=== PATIENT | male | born 1975 | race Caucasian/White ===

== ENCOUNTER 2016-10-05 22:03 | Observation (INO) | payer MEDICAID ==
[~2016-10-05] VITALS: Ht 177.8 cm; Wt 99.8 kg
[~2016-10-05 22:03] MED LIST: AUGMENTIN 875-1 EACH PO; BACTRIM DS 8001 TA1 PO; BACTROBAN2% TP; GABAPENTIN300 M1 PO; INSULIN AS100 UNITS/ SC; JANUMET 1000 MG1 TAB PO; KEFLEX 500MG.500 MG PO; LEVAQUIN750 MG PO; LEVEMIR FLEX100 U/ML SC; LEVEMIR100 U/ML SC; LISINOPRIL2.5 M1 PO; NOVOLOG100 U/ML SC; SEPTRA DS 800 M1 TAB PO
[2016-10-05 22:06] VITALS: BP 191/120
[2016-10-05] MEDS ORDERED: AMLODIPINE BES10 MG PO (22:12)
[2016-10-05] MEDS ORDERED: LOSARTAN POTASS50 MG PO (22:12)
[2016-10-05] MEDS ORDERED: PREGABALIN 50MG50 MG PO (22:13)
[2016-10-05 22:34] LABS: ALLEN'S TEST ACCEPTABLE; ARTERIAL ABE 1.1 MMOL/L (-2.4-+2.3); ARTERIAL PO2 71.7 MMHG (80-100); ARTERIAL TCO2 27.9 MMOL/L (23-27); OXYGEN ROOM AIR
[2016-10-05 22:38] LABS: LYMPH # 0.7 K/mm3 (0.7-4.5); LYMPH % 4.7 % (10-50)
[2016-10-05 22:41] LABS: HEMOGLOBIN 14.1 g/dL (14.1-18.0)
[2016-10-05 22:42] LABS: BUN 39 mg/dL (7-18)
[2016-10-05 22:43] LABS: GFR (ESTIMATED) 75 ML/MIN (>60)
--- NOTE | 2016-10-05 23:17 | Emergency Room Report ---
History of Present Illness Time Seen by [id number] Presenting Problem in Triage Pt arrived:Wheelchair Presenting Problem:PT WITH VOMITTING AND DIARRHEA X 24 HOURS. PT HAS NOT SEEN PCP Onset of symptoms date/time:10/04/1601/13/1800 or onset unknown for: Treatment Prior to Arrival: [employer] Provided by: Sepsis Risk Assessment: Temp: 99.3 B/P: 191/120 MAP: 143 Pulse: 115 Resp: 18 Recent fever? N Clinical Suspician of Infection? N Mental Status: 1 - Regular (Normal Baseline) Sepsis Risk:Low Sepsis Risk Have you (or family members/close friends) recently traveled outside the [place]? N If Yes, where/when: Have you had exposure to infectious disease within the past month? N TB? Other? Specify: Source patient, RN notes reviewed, family, old records Exam Limitations no limitations Comment vomiting and diarrhea since this am in this iddm with no fever Cardiac Chest Pain Chest pain indicative of cardiac No Timing/Duration this evening Severity moderate ALLERGIES Coded Allergies: No Known Allergies (10/05/16) Home Medications Reported Medications Insulin Detemir (Levemir 10ML VIAL) 30 UNITS SC MORNING Insulin Aspart, Recombinant (Novolog VIAL) 30 U SC TID Amlodipine Besylate (Amlodipine Besylate) 10 MG PO DAILY #30 Losartan Potassium (Losartan 50MG) 50 MG PO DAILY #30 Pregabalin (Pregabalin 50MG Capsule) 50 MG PO BID #60 History Medical History General CAD? No Angina: No UT: No Hypertension? Yes Hyperlipidemia? No CHF? No DVT? No PE? No COPD? No Asthma? No Anemia? No GERD? No Gastric ulcers? No GI Bleed? No Hernia? No Thyroid Problems? No Hypothyroidism? No CVA? No Seizures? No Diabetes? Yes Insulin Dependent: Yes Insulin Pump: No Home FSBS? Yes Renal Insuffiency? No End Stage Renal Disease? No UTI? No Stones? No BPH? No GB Disease: No Nephritic Syndrome? No Asplenia? No Hepatitis? No Sickle Cell Disease? No Arthritis? No Migraines? No Cataracts? No Glaucoma? No MRSA? No HIV? No TB? No Anxiety? No Depression? No Cancer? No More? No Immunization Hx DT/Tetanus 1-4 Years Ago Flu Refused Pneumonia Refuses Surgical Hx Previous Surgery?Y LT GREAT TOENAIL REMOVED COLONOSCOPY W/ POLY REMOVAL Family History Family Hx Diabetes Yes CAD Yes Hypertension Yes Hyperlipidemia Yes Cancer Yes TB No Social History Smoking Hx Smoker: Never Smoker Tobacco: No Type N/A Are you/the child exposed to second-hand smoke: No Alcohol Alcohol: No Drugs none Review of Systems All Other Systems Reviewed and Negative Constitutional see HPI, denies fever, weakness Eyes denies drainage ENT denies: ear pain, epistaxis, throat pain. Respiratory denies cough, denies shortness of breath, denies wheezing Cardiovascular denies chest pain, denies palpitations, denies syncope Gastrointestinal see HPI, diarrhea, nausea, vomiting Genitourinary denies: dysuria, frequency, hesitancy, hematuria. Musculoskeletal denies back pain, denies joint pain, denies joint swelling, denies neck pain Skin denies rash Psychiatric/Neurological denies headache, denies seizure Physical Exam Vital Signs Vital Signs Date Time Temp Pulse Resp B/P Pulse O2 O2 Flow FiO2 Ox Delivery Rate 10/06 0244 112 18 165/104 95 10/06 0129 113 18 164/97 93 10/06 0027 112 18 142/87 98 10/05 2206 99.3 115 18 191/120 95 - WBC >12,000 or <4,000 or 10% bands? 2 or more SIRS Criteria Met? B/P:165/104 MAP:143 Creatinine >2.0? UA output<0.5ml/kg/hr for 2 hrs? Platelet count >100,000? Lactate >2.0mmol/1? INR >1.2 or PTT > than 60 sec? Evidence of Organ Dysfunction? Provider documented clinical suspician of infection? N Sepsis Criteria Count: 1 Sepsis Risk: Low Sepsis Risk General Appearance no apparent distress Eye Exam - bilateral eye PERRL, bilateral eye EOMI Ear, Nose, Throat pharyngeal erythema, dry mm Neck supple Respiratory Status No: respiratory distress. Lung Sounds bilateral: lungs clear. Cardiovascular regular rate/rhythm, no murmur, no rub Peripheral Pulses Pulses normal Yes Gastrointestinal soft, no organomegaly, no guarding, no rebound Back no CVA tenderness Extremities normal inspection Strength 4 Upper Ext (L), 4 Upper Ext (R), 4 Lower Ext (L), 4 Lower Ext (R) Neurologic alert, media job titles II-XII nml as tested, no motor/sensory deficits Reflexes Reflexes normal Yes Mental status normal mood/affect Skin intact Medical Decision Making LABS/Meds/Orders Pt receiving controlled substance in ED? No Results/Orders Laboratory Tests 10/05/162229: ABG pH 7.37, ABG pCO2 (Temp Corrct 46.9 H, ABG pO2 (Temp Correct 71.7 L, ABG HCO3 26.4 H, ABG Total CO2 27.9 H, ABG O2 Sat (Calculated) 94.6, ABG Base Excess 1.1, Daniel Test ACCEPTABLE 10/05/162223: Troponin I < 0.02 10/05/162223: Sodium 139, Potassium 4.6, Chloride 101, Carbon Dioxide 27, BUN 39 H, Creatinine 1.1, Estimated Creat Clear 127, Estimated GFR (MDRD) 75, Glucose 312 H, Calcium 9.1, Total Bilirubin 0.9, AST 14 L, ALT 42, Alkaline Phosphatase 92, Total Protein 8.3 H, Albumin 3.9, Globulin 4.4 H, Albumin/Globulin Ratio 0.9 L, Amylase 53, Lipase 70 L, WBC 15.5 H, RBC 4.98, Hgb 14.1, Hct 41.8 L, MCV 83.9, RDW 13.5, Plt Count 184, MPV 9.5, Gran % 92.6 H, Gran # 14.4 H, Total Counted 100, Lymphocytes % 4.7 L, Monocytes % 2.4, Eosinophils % 0.1, Basophils % 0.1, Neutrophils 97 H, Lymphocytes (Manual) 3 L, Lymphocytes # 0.7, Monocytes # 0.4, Eosinophils # 0.0, Basophils # 0.0, Platelet Estimate NORMAL, Anisocytosis 1+, PUBS MCHC 33.4, MCH 28.1, Acetone Level NONE DETECTED Current Medication Orders Sig/Zenia Start time Last Medication Dose Route Stop Time Status Admin Sodium Chloride 1,000 ML .Q1H1M 10/06 0130 DC 10/06 IV 10/06 023 0126 Sodium Chloride 10 ML PRN PRN 10/06 129 AC IV 10/07 012 Sodium Chloride 1,000 ML .STK-MED ONE 10/06 123 DC IV Sodium Chloride 1,000 ML .Q1H1M 10/06 0030 DC 10/06 IV 10/06 013 0024 Sodium Chloride 1,000 ML .STK-MED ONE 10/06 002 DC IV Metoclopramide HCl 0 .STK-MED ONE 10/05 2359 DC .ROUTE Famotidine 0 .STK-MED ONE 10/05 2358 DC IV Famotidine 20 MG ONCE ONE 10/05 2345 DC / IV 10/05 2346 0001 Metoclopramide HCl 10 MG ONCE ONE 10/05 2345 DC 10/06 IVP 10/05 2346 0001 Sodium Chloride 8 ML ONCE ONE 10/05 2345 DC 10/06 IV 10/05 2346 0001 Sodium Chloride 1,000 ML .Q1H1M 10/05 2330 DC 10/05 IV 10/06 0030 2320 Sodium Chloride 10 ML PRN PRN 10/05 2330 AC IV 10/06 2319 Sodium Chloride 1,000 ML .STK-MED ONE 10/05 2319 DC IV Ondansetron HCl 0 .STK-MED ONE 10/05 2228 DC .ROUTE Sodium Chloride 1,000 ML .STK-MED ONE 10/05 2228 DC IV Ondansetron HCl 4 MG ONCE ONE 10/05 2215 DC 10/05 IV 10/05 2216 2231 Sodium Chloride 1,000 ML .Q1H1M 10/05 2215 DC 10/05 IV 10/05 2315 2231 Sodium Chloride 10 ML PRN PRN 10/05 2215 AC IV 10/06 2215 Orders Procedure Date/time Status DIET-NOTHING BY MOUTH 10/06 B Active Decision to admit 10/[address] ABD & PELVIS W/O CONTRAST 10/[address] SCAN REQ 10/05 2318 Complete URINALYSIS/COMPLETE 10/05 2318 Active TROPONIN I 10/05 2318 Complete DIARRHEA PANEL, PCR 10/05 2318 Active DIFFERENTIAL-WBC 10/05 222 Complete ARTERIAL BLOOD GAS REQUEST 10/05 2216 Active IV SALINE LOCK 10/05 2214 Active LIPASE 10/05 2214 Complete CBC WITH AUTO DIFF 10/05 2214 Complete CHEM 12 PROFILE 10/05 2214 Complete AMYLASE 10/05 2214 Complete Acetone, Serum 10/05 2214 Complete XRAY/CT/US XRAY/CT/US CT abdomen, pelvis CT interpretation by discussed w/radiologist Time results known: 025 CT Results normal/NAD Departure Departure Time of Disposition 025 Disposition Still a Patient Clinical Impression Primary Impression: Gastroenteritis Secondary Impressions: IDDM (insulin dependent diabetes mellitus) Condition STABLE Referrals Andrew HEDRICK,Dionicio (Family) ED Critical Care Critical Care No at [phone]
[2016-10-06 00:48] LABS: NEUTROPHILS 97 % (42-76)
[2016-10-06 04:08] VITALS: BP 165/104
[2016-10-06 06:30] LABS: LYMPH # 1.1 K/mm3 (0.7-4.5); LYMPH % 8.8 % (10-50)
[2016-10-06 06:38] VITALS: BP 166/101
[2016-10-06 06:41] LABS: HEMOGLOBIN 11.1 g/dL (14.1-18.0)
--- NOTE | 2016-10-06 07:14 | Discharge Summary Standard ---
Demographics: Admit date: 10/06/16 Chief complaint: Vomiting and diarrhea PRIMARY DIAGNOSIS: GASTROENTERITIS Allergies: Coded Allergies: No Known Allergies (10/05/16) History of present illness: History of present illness: 41-year-old male with diabetes presented to the emergency department after 24 hours of continuous vomiting and diarrhea. Workup in the emergency department revealed a slightly elevated white blood cell count. Imaging tests were unremarkable. The patient did not have any abdominal tenderness. Because of persistent symptoms and lightheadedness upon standing the patient was admitted for observation and IV fluids. Patient last vomited approximately 6-7 hours ago. Last diarrheal bowel movement was yesterday afternoon. Past medical history: Family HX Family Hx Insignificant No Diabetes Yes CAD Yes Hypertension Yes Hyperlipidemia Yes Cancer Yes TB No Immunization HX DT/Tetanus 1-4 Years Ago Flu Refused Pneumonia Refuses TB Test in last year No General CAD? No Angina: No OR: No Hypertension? Yes Hyperlipidemia? No CHF? No DVT? No PE? No COPD? No Asthma? No Anemia? No GERD? No Gastric ulcers? No GI Bleed? No Hernia? No Thyroid Problems? No Hypothyroidism? No CVA? No Seizures? No Diabetes? Yes Insulin Dependent: Yes Insulin Pump: No Home FSBS? Yes Renal Insuffiency? No UTI? No Stones? No BPH? No GB Disease: No Nephritic Syndrome? No Asplenia? No Hepatitis? No Sickle Cell Disease? No Arthritis? No Migraines? No Cataracts? No Glaucoma? No MRSA? No HIV? No TB? No Anxiety? No Depression? No Cancer? No More? No Past Surgical HX Previous Surgery?Y LT GREAT TOENAIL REMOVED COLONOSCOPY W/ POLY REMOVAL Current home meds: Reported Medications Insulin Detemir (Levemir 10ML VIAL) 30 UNITS SC MORNING Insulin Aspart, Recombinant (Novolog VIAL) 30 U SC TID Amlodipine Besylate (Amlodipine Besylate) 10 MG PO DAILY #30 Losartan Potassium (Losartan 50MG) 50 MG PO DAILY #30 Pregabalin (Pregabalin 50MG Capsule) 50 MG PO BID #60 Social Hx: Smoking HX Tobacco No Type N/A Are you/the child exposed to second-hand smoke: No Alcohol Alcohol: No Hx of Drug Use Drug Use? No Review of systems: Constitutional No: chills, fever. Respiratory no symptoms reported. Cardiovascular no symptoms reported Gastrointestinal/Abdominal see HPI Genitourinary no symptoms reported. Musculoskeletal no symptoms reported. Neurological Yes: no symptoms reported. Exam: Lab data for last 24 hours: Laboratory Tests 10/06/16 06: POC Glucose 227 H 10/06/16 0620: Sodium 143, Potassium 4.6, Chloride 109 H, Carbon Dioxide 29, BUN 31 H, Creatinine 0.9, Estimated Creat Clear 156, Estimated GFR (MDRD) 94, Glucose 237 H, Calcium 7.7 L, Total Bilirubin 0.5, AST 10 L, ALT 30, Alkaline Phosphatase 66, Total Protein 6.3 L, Albumin 2.9 L, Globulin 3.4 H, Albumin/Globulin Ratio 0.9 L, WBC 11.9 H, RBC 3.93 L, Hgb 11.1 L, Hct 33.3 L, MCV 84.8, RDW 13.5, Plt Count 139 L, MPV 9.2, Gran % 87.1 H, Gran # 10.4 H, Lymphocytes % 8.8 L, Monocytes % 3.9, Eosinophils % 0.1, Basophils % 0.1, Lymphocytes # 1.1, Monocytes # 0.5, Eosinophils # 0.0, Basophils # 0.0, PUBS MCHC 33.7, MCH 28.6 10/05/162229: ABG pH 7.37, ABG pCO2 (Temp Corrct 46.9 H, ABG pO2 (Temp Correct 71.7 L, ABG HCO3 26.4 H, ABG Total CO2 27.9 H, ABG O2 Sat (Calculated) 94.6, ABG Base Excess 1.1, Daniel Test ACCEPTABLE 10/05/162223: Troponin I < 0.02 10/05/162223: Sodium 139, Potassium 4.6, Chloride 101, Carbon Dioxide 27, BUN 39 H, Creatinine 1.1, Estimated Creat Clear 127, Estimated GFR (MDRD) 75, Glucose 312 H, Calcium 9.1, Total Bilirubin 0.9, AST 14 L, ALT 42, Alkaline Phosphatase 92, Total Protein 8.3 H, Albumin 3.9, Globulin 4.4 H, Albumin/Globulin Ratio 0.9 L, Amylase 53, Lipase 70 L, WBC 15.5 H, RBC 4.98, Hgb 14.1, Hct 41.8 L, MCV 83.9, RDW 13.5, Plt Count 184, MPV 9.5, Gran % 92.6 H, Gran # 14.4 H, Total Counted 100, Lymphocytes % 4.7 L, Monocytes % 2.4, Eosinophils % 0.1, Basophils % 0.1, Neutrophils 97 H, Lymphocytes (Manual) 3 L, Lymphocytes # 0.7, Monocytes # 0.4, Eosinophils # 0.0, Basophils # 0.0, Platelet Estimate NORMAL, Anisocytosis 1+, PUBS MCHC 33.4, MCH 28.1, Acetone Level NONE DETECTED Admission vital signs: 1ST Vital Signs Result Date Time Pulse Ox 95 10/05 2205 B/P 191/120 10/05 2205 Temp 99.3 10/05 2205 Pulse 115 10/05 2205 Resp 18 10/05 2205 O2 Delivery ROOM AIR 10/06 0407 Additional information: Patient is resting comfortably in bed. Oropharynx is moist without any posterior oropharyngeal erythema. Neck has no lymphadenopathy. Lungs are clear to auscultation. Heart has regular rate and rhythm. Abdomen is soft, nontender and nondistended with normal bowel sounds. Patient can move all his extremities. Neurologically he has diminished sensation in the feet from his diabetic neuropathy otherwise normal neurologic exam. Hospital Course Hospital Course: Patient was admitted and placed on IV fluids. Diet was started on the morning of the . Medications Medications: Discharge meds are as noted. Follow up Follow up in office in: as scheduled with: Andrew HEDRICK,Dionicio
[2016-10-06 07:31] VITALS: BP 165/103
--- NOTE | 2016-10-06 07:39 | PHARMACY CLINIC NOTE ---
Patient Demographics Patient Demographics Admission date: 10/06/16 Date: 10/06/16 Time: 07 Allergies Coded Allergies: No Known Allergies (10/05/16) HEIGHT- FT: 5 IN: 10.00 K.792 VTE General Information Labs: Laboratory Tests 10/0620 2224 Hematology Hgb (14.1 - 18.0 g/dL) 11.1 L 14.1 Hct (42.0 - 52.0 %) 33.3 L 41.8 L Plt Count (142 - 424 K/mm3) 139 L 184 Disclaimer The following section includes nursing documentation that has been pulled in for pharmacy review. Patient's VTE score: 1 Patient's VTE Risk: VERY LOW RISK Clinical trial participant? No VTE prophylaxis [id number] VTE prophylaxis ordered? Yes Type of prophylaxis/treatment: SABINE at 0739
--- NOTE | 2016-10-06 08:26 | RADIOLOGY REPORT PS360 ---
CT ABD PELVIS W/O CONTRAST CLINICAL INDICATION: Abdominal pain with nausea vomiting and diarrhea ABD PAIN ORDERING PHYSICIAN: Dionicio Morales MD PATIENT AGE: 41 years COMPARISON: None TECHNIQUE: Axial images obtained with sagittal and coronal reformats. PROCEDURE: Oral Contrast: None IV Contrast: None . FINDINGS: Lower thorax: No acute finding. Noncalcified 4 mm nodule left lower lobe nonspecific ABDOMEN: Liver: No masses or biliary dilatation. Gallbladder: Nondistended. No radio opaque stones. Pancreas: No masses or peripancreatic fluid collections. Spleen: Unremarkable. Adrenals: Unremarkable Kidneys/ureters: No masses. No renal calculi. No hydronephrosis. No perinephric fluid collections. No ureteral dilatation or obvious ureteral calculi. Stomach bowel: Colonic diverticulosis. No evidence of diverticulitis. Thickening versus nondistention of the descending and sigmoid colon Appendix: No evidence of appendicitis. PELVIS: Reproductive: Unremarkable Bladder: Nondistended. No obvious stones or masses. ABDOMEN & PELVIS: Peritoneum: No abnormal fluid collections. No obvious inflammatory changes. No free air. Lymph nodes: No enlarged lymph nodes apparent. Vasculature: No evidence of abdominal aortic aneurysm. No retroperitoneal hemorrhage evident. Bones: No acute fracture IMPRESSION: 1. No acute intra-abdominal or pelvic pathology. 2. Colonic diverticulosis. No evidence of diverticulitis. There is mild thickening of the descending and sigmoid colon which may be due to nondistention. Colitis would be included in the differential diagnosis
[2016-10-06 08:49] VITALS: BP 165/103
[2016-10-06 13:24] LABS: URINE BILIRUBIN - DIPSTICK NEGATIVE (NEG); URINE BLOOD 2+ (NEG)
[2016-10-06 15:43] VITALS: BP 158/88
[2016-12-15] MEDS ORDERED: SEPTRA DS 800 M1 TAB PO (22:42)
[2016-12-15] MEDS ORDERED: KEFLEX 500MG.500 MG PO (22:42)
== END 2016-10-06 15:50 | disposition home or self-care (01) ==
LOC: ER 22:03 → 2ND 10-06 02:54
PROVIDERS: Emergency Medicine
DX: K52.9 Noninfective gastroenteritis and colitis, unspecified (principal); E11.9 Type 2 diabetes mellitus without complications; Z79.4 Long term (current) use of insulin; I10 Essential (primary) hypertension
CPT/HCPCS: G0378; J2405

== ENCOUNTER 2017-05-01 09:33 | Inpatient (IN) | payer MEDICAID ==
[~2017-05-01] VITALS: Ht 177.8 cm; Wt 103.6 kg
[~2017-05-01 09:33] MED LIST changes: +AMLODIPINE BES10 MG PO; +LOSARTAN POTASS50 MG PO; +PREGABALIN 50MG50 MG PO
--- NOTE | 2017-05-01 10:09 | Urgent Treatment Center Report ---
History of Present Issue Visit Reason Pt arrived:Walked Presenting Problem:PT STATES FEVER, N/V, DIZZINESS, ROARING IN EARS. STATES RECENT HOSPITALIZATION WHICH HE WAS RELEASED FROM WEDNESDAY AND HAS NOT FELT BETTER SINCE Location if Accident: Onset of symptoms date/time:/ or onset unknown for:MEDICAL HX UNKNOWN Have you (or family members/close friends) recently traveled outside the [place]? N If Yes, where/when: Have you had exposure to infectious disease within the past month? TB? Other? Specify: Source patient Exam Limitations no limitations Comment 41-year-old male presents for vomiting, dizziness, roaring in the ears, edema, low-grade fever, unable to keep liquids or food down. Patient was an inpatient just released for gastritis. ALLERGIES Coded Allergies: ondansetron (05/01/17) promethazine (From PHENERGAN) (05/01/17) Home Medications Reported Medications Insulin Detemir (Levemir 10ML VIAL) 36 UNITS SC MORNING Insulin Aspart, Recombinant (Novolog VIAL) 12 UNITS SC TID Amlodipine Besylate (Amlodipine Besylate) 10 MG PO DAILY #30 Losartan Potassium (Losartan 50MG) 50 MG PO DAILY #30 Pregabalin (Pregabalin 50MG Capsule) 50 MG PO BID #60 (Lucretia Smith) Date/Time Seen by Provider 05/01/17 1034 Comment pT transferred from the [facility] to the ED after CXR read as Pulmonary Edema by Dr. Toussaint. His BNP is only 116 and his O2 Sat on Room air is around 81%. He does have 1+ pretibial edema, his neck veins are not distended and I do not hear crackles in the bases. He denies any chest pain but says even when he was in the hospital last week, his O2 Sats were low. He also reports he normally has some pedal and pretibial edema and normally wears SABINE hose but not today He has been a Type 1 DM pt for over 20 years and has had some episodes of DKA in the past but does not appear to be in DKA today (Holly HEDRICK,Elizabet) History Medical History General CAD? No Angina: No CT: No Hypertension? Yes Hyperlipidemia? No CHF? No DVT? No PE? No COPD? No Asthma? No Anemia? No GERD? No Gastric ulcers? No GI Bleed? No Hernia? No Thyroid Problems? No Hypothyroidism? No CVA? No Seizures? No Diabetes? Yes Insulin Dependent: Yes Insulin Pump: No Home FSBS? Yes Renal Insuffiency? No UTI? No Stones? No BPH? No GB Disease: No Nephritic Syndrome? No Asplenia? No Hepatitis? No Sickle Cell Disease? No Arthritis? No Migraines? No Cataracts? No Glaucoma? No MRSA? No HIV? No TB? No Anxiety? No Depression? No Cancer? No More? Yes Additional hx: DIABETIC ISSUE WITH EYE (GETS SHOTS) Immunization HX DT/Tetanus 1-4 Years Ago Flu Refused Pneumonia Refuses Surgical Hx Previous Surgery?Y LT GREAT TOENAIL REMOVED COLONOSCOPY W/ POLY REMOVAL Family History Family HX Diabetes Yes CAD Yes Hypertension Yes Hyperlipidemia Yes Cancer Yes TB No Social History Smoking Hx Smoker: Never Smoker Tobacco: No Alcohol Alcohol: No (Lucretia Smith) Medical History Surgical Hx Previous Surgery?Y LT GREAT TOENAIL REMOVED COLONOSCOPY W/ POLY REMOVAL (Holly HEDRICK,Elizabet) Review of Systems All Other Systems Reviewed and Negative Gastrointestinal see HPI, nausea, vomiting (Lucretia Smith) All Other Systems Reviewed and Negative Constitutional see HPI Respiratory see HPI Cardiovascular see HPI Musculoskeletal see HPI (edema both legs) (Holly HEDRICK,Elizabet) Physical Exam Vital Signs Vital Signs Date Time Temp Pulse Resp B/P Pulse O2 O2 Flow FiO2 Ox Delivery Rate 05/01 1344 98.7 86 18 170/104 98 / 1304 94 16 181/106 95 05/01 1225 96 14 189/109 95 05/01 1124 98.5 110 18 177/106 90 / 0946 98.7 89 18 187/110 96 - WBC >12,000 or <4,000 or 10% bands? 2 or more SIRS Criteria Met? B/P:187/110 MAP:135 Creatinine >2.0? UA output<0.5ml/kg/hr for 2 hrs? Platelet count >100,000? Lactate >2.0mmol/1? INR >1.2 or PTT > than 60 sec? Evidence of Organ Dysfunction? Provider documented clinical suspician of infection? Sepsis Criteria Count: 0 Sepsis Risk: General Appearance normal appearance, mild distress Respiratory Status Yes: trachea midline, chest symmetrical. No: respiratory distress. Lung Sounds bilateral: decreased breath sounds. Cardiovascular normal exam, normal peripheral pulses, edema to lower ext and abd Gastrointestinal normal bowel sounds, soft, no guarding, no rebound Extremities pedal edema, 2+ pitting edema to the lower extremities Neurologic alert, dress cutter II-XII nml as tested, normal exam, oriented x 3 (Lucretia Smith) General Appearance mild distress Respiratory Status No: respiratory distress. (Holly HEDRICK,Elizabet) Medical Decision Making LABS/Meds/Orders Pt receiving controlled substance in ED? No Results/Orders Laboratory Tests 05/01/17 1202: ABG pH Pending, ABG pCO2 (Temp Corrct Pending, ABG pO2 (Temp Correct Pending, ABG HCO3 Pending, ABG O2 Sat (Calculated) Pending, ABG Base Excess Pending 05/01/17 1155: ABG pH 7.36, ABG pCO2 (Temp Corrct 51.6 H, ABG pO2 (Temp Correct 48.3 *L, ABG HCO3 28.2 H, ABG Total CO2 29.8 H, ABG O2 Sat (Calculated) 83.1 *L, ABG Base Excess 2.7 H, Daniel Test ACCEPTABLE, Blood Gas Comments RIGHT RADIAL 05/01/17 1015: Lactic Acid 0.8 05/01/17 1015: Creatine Kinase 261, CK-MB (CK-2) Rel Index 1.1, CK and CKMB Interp 3.0, Troponin I < 0.02 05/01/17 1015: Sodium 137, Potassium 4.9, Chloride 101, Carbon Dioxide 28, BUN 34 H, Creatinine 1.5 H, Estimated Creat Clear 98, Estimated GFR (MDRD) 52, Glucose 387 H, Calcium 8.1 L, Total Bilirubin 0.5, AST 17, ALT 87 H, Alkaline Phosphatase 82, B-Natriuretic Peptide 116 H, Total Protein 7.1, Albumin 3.6, Globulin 3.5 H, Albumin/Globulin Ratio 1.0 L, Amylase 24 L, Lipase 123, WBC 7.1, RBC 3.85 L, Hgb 11.2 L, Hct 35.2 L, MCV 91.3, RDW 14.4, Plt Count 205, MPV 9.0, Gran % 82.2 H, Gran # 5.8, Lymphocytes % 11.6, Monocytes % 4.0, Eosinophils % 1.8, Basophils % 0.4, Lymphocytes # 0.8, Monocytes # 0.3, Eosinophils # 0.1, Basophils # 0.0, PUBS MCHC 31.9, MCH 29.2, Acetone Level NONE DETECTED Current Medication Orders Sig/Zenia Start time Last Medication Dose Route Stop Time Status Admin Furosemide 0 .STK-MED ONE 05/01 1213 DC .ROUTE Nitroglycerin 0 .STK-MED ONE 05/01 1212 DC .ROUTE Furosemide 40 MG ONCE ONE 05/01 1200 DC 05/01 IV 05/01 1201 1212 Nitroglycerin 0.5 IN ONCE ONE 05/01 1200 DC 05/01 TP 05/01 1201 1212 Orders Procedure Date/time Status ARTERIAL BLOOD GAS REQUEST 05/01 1128 Active CULTURE, BLOOD 05/01 1125 Active CULTURE, BLOOD 05/01 1123 Active Acetone, Serum 05/01 1054 Complete LACTIC ACID 05/01 1009 Complete 12 LEAD EKG-BESSON (INITIAL) 05/01 0955 Active ELECTROCARDIOGRAM REQUEST 05/01 0954 Active CARDIAC ENZYMES 05/01 0954 Complete LIPASE 05/01 0948 Complete CBC WITH AUTO DIFF 05/01 0948 Complete CHEM 12 PROFILE 05/01 0948 Complete BRAIN NATRIURETIC PEPTIDE 05/01 0948 Complete AMYLASE 05/01 0948 Complete Departure Departure Referrals Dionicio Morales MD (Family) (Lucretia Smith) Departure Time of Disposition 1453 Disposition Still a Patient Clinical Impression Primary Impression: Congestive heart failure Qualifiers: Congestive heart failure type: diastolic Congestive heart failure chronicity: acute Qualified Code: I50.31 - Acute diastolic (congestive) heart failure Secondary Impressions: Diabetes mellitus type 1, controlled, insulin dependent Condition STABLE Additional Instructions Dr Morales admitting to OBS to Dr. Morales Discharge Counseling Counseled pt/family regarding diagnosis, test results, follow up needs (Elizabet Barrera MD) at 1456
[2017-05-01 10:29] LABS: HEMOGLOBIN 11.2 g/dL (14.1-18.0); LYMPH # 0.8 K/mm3 (0.7-4.5); LYMPH % 11.6 % (10-50)
[2017-05-01 11:24] VITALS: BP 177/106
--- NOTE | 2017-05-01 11:46 | RADIOLOGY REPORT PS360 ---
CHEST(2 VIEWS-NOT PORTABLE) HISTORY: effusion hx short of breath. Malaise. Recent discharge. Dizzy. Chest pain. Cough. Patient Age: 41 years: Male Ordering Physician: Lucretia Smith TECHNIQUE: PA and lateral chest COMPARISON :PA and lateral chest 11/19/2016 as well as recent CT abdomen which included the lung bases from 04/22/2017. FINDINGS Significant change in appearance the chest since prior chest film 11/19/2016. There is interstitial coarsening and edema most evident at the right lung. With this there are septal lines, curly B lines seen at the periphery of the right lung particularly right upper lung.. Also blunting of the posterior sulcus reflecting bilateral pleural effusions. Question additional more focal infiltrate at the right infrahilar region towards right lower lobe. The heart is normal in size. A slight hazy appearance of the perihilar region right greater than left likely reflecting the mild pulmonary edema. Recent CT chest 04/22/2017 also reflected interstitial edema with bilateral pleural effusions. These pleural effusions have not progressed in the interstitial edema appears comparable to what was seen at the partially imaged lungs on that study. Interstitial infiltrate and findings were most evident at the right infrahilar region. Question some fullness at the right nevaeh on that exam. I would recommend a follow-up CT chest and abdomen with contrast, when feasible in follow-up to evaluate this question a generous right nevaeh on the recent CT abdomen.-Which May merely be partially imaged generous right pulmonary artery IMPRESSION Diffuse Interstitial infiltrate/, & mild pulmonary edema pattern most evident right lung, with tricia B lines most evident on right... The heart is not enlarged. ( Is patient anemic/hypoproteinemic/or edematous state otherwise?) Suggestion additional infiltrate towards RLL, most evident on lateral view. Small Bilateral pleural effusions persist, seen at posterior sulcus as seen on 04/22/2017 CT Similar interstitial edema pattern was noted on recent CT abdomen, 04/22/2017which included lung bases . Note: On again review of recent CT abdomen there seems to be some fullness of the hilar regions, right more so than left. Would encourage a follow-up CT chest & abdomen with contrast when feasible.. Possible CTA chest if this is a concern
[2017-05-01 14:05] LABS: ALLEN'S TEST ACCEPTABLE; ARTERIAL ABE 2.7 MMOL/L (-2.4-+2.3); ARTERIAL PO2 48.3 MMHG (80-100); ARTERIAL TCO2 29.8 MMOL/L (23-27); OXYGEN ROOM AIR
[2017-05-01 15:08] VITALS: BP 150/94
[2017-05-01 15:52] VITALS: BP 150/94
[2017-05-01 19:56] VITALS: BP 139/72
[2017-05-02] VITALS (7 sets, daily range): BP systolic 127–185; BP diastolic 56–97
--- NOTE | 2017-05-02 06:43 | HISTORY AND PHYSICAL REPORT ---
Demographics: Admit date: 05/01/17 Chief complaint: Shortness of breath PRIMARY DIAGNOSIS: HEART FAILURE Allergies: Coded Allergies: promethazine (From PHENERGAN) (05/01/17) History of present illness: History of present illness: 41-year-old male with long history of uncontrolled diabetes with neuropathy and hypertension presented to the emergency department after awakening on the morning of May 01 with shortness of breath. Dyspnea was so severe he returned to the emergency department where his O2 sats were in the high 70s. Patient had signs and symptoms consistent with acute congestive heart failure and his chest x-ray showed pulmonary edema. Patient had been hospitalized approximately 10 days prior and during that hospitalization had had an echocardiogram which showed a hyperdynamic ventricle with normal ejection fraction and no signs of diastolic dysfunction. Patient was given Lasix in the emergency department and had 2 L of urine output which helped relieve dyspnea. Patient was admitted for further monitoring, IV Lasix, serial enzymes. Overnight the patient developed acute onset of a migraine headache with a stabbing pain in the christian, nausea, vomiting and phonophobia. Patient denies having any chest pain. He has noted that his legs and been more swollen recently than baseline. Patient also admits he felt like his abdomen has been swollen Past medical history: Family HX Family Hx Insignificant No Diabetes Yes CAD Yes Hypertension Yes Hyperlipidemia Yes Cancer Yes TB No Immunization HX DT/Tetanus 1-4 Years Ago Flu Refused Pneumonia Refuses TB Test in last year No General CAD? No Angina: No PR: No Hypertension? Yes Hyperlipidemia? No CHF? No DVT? No PE? No COPD? No Asthma? No Anemia? No GERD? No Gastric ulcers? No GI Bleed? No Hernia? No Thyroid Problems? No Hypothyroidism? No CVA? No Seizures? No Diabetes? Yes Insulin Dependent: Yes Insulin Pump: No Home FSBS? Yes Renal Insuffiency? Yes UTI? No Stones? No BPH? No GB Disease: No Nephritic Syndrome? No Asplenia? No Hepatitis? No Sickle Cell Disease? No Arthritis? No Migraines? No Cataracts? No Glaucoma? No MRSA? No HIV? No TB? No Anxiety? No Depression? No Cancer? No More? Yes Additional hx: DIABETIC ISSUE WITH EYE (GETS SHOTS) Past Surgical HX Previous Surgery?Y LT GREAT TOENAIL REMOVED COLONOSCOPY W/ POLY REMOVAL Current home meds: Reported Medications Insulin Detemir (Levemir 10ML VIAL) 36 UNITS SC MORNING Insulin Aspart, Recombinant (Novolog VIAL) 12 UNITS SC TID Amlodipine Besylate (Amlodipine Besylate) 10 MG PO DAILY #30 Losartan Potassium (Losartan 50MG) 50 MG PO DAILY #30 Pregabalin (Pregabalin 50MG Capsule) 50 MG PO BID #60 Social Hx: Smoking HX Tobacco No Alcohol Alcohol: No Hx of Drug Use Drug Use? No Patien't marital status is Patient's support system is good Review of systems: Constitutional No: chills, diaphoresis, fever, malaise. Respiratory see HPI, orthopnea, SOB with excertion. Cardiovascular No chest pain, edema, No palpitations Gastrointestinal/Abdominal abdomen distended Genitourinary no symptoms reported. Musculoskeletal no symptoms reported. Neurological Yes: no symptoms reported. Exam: Lab data for last 24 hours: Laboratory Tests 05/02/17 0617: POC Glucose 199 H 05/01/17 2041: POC Glucose 123 H 05/01/17 1700: POC Glucose 205 H 05/01/17 1505: Creatine Kinase 273, CK-MB (CK-2) Rel Index 1.0, CK and CKMB Interp 2.8, Troponin I < 0.02 05/01/17 1155: ABG pH 7.36, ABG pCO2 (Temp Corrct 51.6 H, ABG pO2 (Temp Correct 48.3 *L, ABG HCO3 28.2 H, ABG Total CO2 29.8 H, ABG O2 Sat (Calculated) 83.1 *L, ABG Base Excess 2.7 H, Daniel Test ACCEPTABLE, Blood Gas Comments RIGHT RADIAL 05/01/17 1015: Lactic Acid 0.8 05/01/17 1015: Creatine Kinase 261, CK-MB (CK-2) Rel Index 1.1, CK and CKMB Interp 3.0, Troponin I < 0.02 05/01/17 1015: Sodium 137, Potassium 4.9, Chloride 101, Carbon Dioxide 28, BUN 34 H, Creatinine 1.5 H, Estimated Creat Clear 98, Estimated GFR (MDRD) 52, Glucose 387 H, Calcium 8.1 L, Total Bilirubin 0.5, AST 17, ALT 87 H, Alkaline Phosphatase 82, B-Natriuretic Peptide 116 H, Total Protein 7.1, Albumin 3.6, Globulin 3.5 H, Albumin/Globulin Ratio 1.0 L, Amylase 24 L, Lipase 123, WBC 7.1, RBC 3.85 L, Hgb 11.2 L, Hct 35.2 L, MCV 91.3, RDW 14.4, Plt Count 205, MPV 9.0, Gran % 82.2 H, Gran # 5.8, Lymphocytes % 11.6, Monocytes % 4.0, Eosinophils % 1.8, Basophils % 0.4, Lymphocytes # 0.8, Monocytes # 0.3, Eosinophils # 0.1, Basophils # 0.0, PUBS MCHC 31.9, MCH 29.2, Acetone Level NONE DETECTED Microbiology 05/01 150 BLOOD: Anaerobic Blood Culture - RECD 05/01 150 BLOOD: Aerobic Blood Culture - RECD 05/01 150 BLOOD: Anaerobic Blood Culture - RECD 05/01 150 BLOOD: Aerobic Blood Culture - RECD Admission vital signs: 1ST Vital Signs Result Date Time Pulse Ox 96 05/01 0946 B/P 187/110 05/01 0946 Temp 98.7 05/01 0946 Pulse 89 05/01 0946 Resp 18 05/01 0946 O2 Flow Rate 2 05/01 1445 O2 Delivery OXYGEN 05/01 1508 Vital Signs Date Time Temp Pulse Resp B/P Pulse O2 O2 Flow FiO2 Ox Delivery Rate 05/02 0430 2 05/02 0430 98.6 94 20 169/93 96 OXYGEN 2 05/02 0255 2 05/02 0200 2 05/02 0103 2 05/02 0049 96 OXYGEN 2 05/02 0000 99.0 97 20 127/56 Exam General appearance: normal appearance, alert, awake Eyes: normal exam, anicteric ENT: normal exam, mucous membranes moist Neck: normal inspection, non-tender, no carotid bruit, no JVD Cardiovascular: normal exam Respiratory: normal exam, clear to auscultation ABD: normal exam, non-distended, normal bowel sounds Extremities: edema (2+) Additional information: Electrocardiogram shows a sinus rhythm without ischemic changes Plan: Problem List 1. Congestive heart failure 2. Elevated liver function tests 3. Hypertension 4. IDDM (insulin dependent diabetes mellitus) 5. Diabetic neuropathy Plan: Etiology of patient's congestive heart failure is somewhat unclear. Due to the long-standing nature of his uncontrolled diabetes there is a high percentage the patient does have significant coronary artery disease. Patient will be given additional Lasix today with close monitoring of I's and O's. Plan for cardiac stress testing on May 04
[2017-05-02 07:04] LABS: HEMOGLOBIN 10.6 g/dL (14.1-18.0); LYMPH # 1.2 K/mm3 (0.7-4.5); LYMPH % 16.2 % (10-50)
[2017-05-02 07:30] LABS: BILIRUBIN, INDIRECT 0.38 mg/dL (0-0.9)
--- NOTE | 2017-05-02 09:33 | PHARMACY CLINIC NOTE ---
Patient Demographics Patient Demographics Admission date: 05/01/17 Date: 05/02/17 Time: 09 Allergies Coded Allergies: promethazine (From PHENERGAN) (05/01/17) HEIGHT- FT: 5 IN: 10.00 K.375 VTE General Information Labs: Laboratory Tests 05/02 05/01 0602 1015 Hematology Hgb (14.1 - 18.0 g/dL) 10.6 L 11.2 L Hct (42.0 - 52.0 %) 33.1 L 35.2 L Plt Count (142 - 424 K/mm3) 207 205 Disclaimer The following section includes nursing documentation that has been pulled in for pharmacy review. Patient's VTE score: 1 Patient's VTE Risk: VERY LOW RISK Clinical trial participant? No VTE prophylaxis NQF [id number] VTE prophylaxis ordered? Yes Type of prophylaxis/treatment: SABINE at 0933
--- NOTE | 2017-05-02 15:02 | CONSULT NOTE ---
Pharmacokinetic Consult Date of consult: 05/02/17 Time of consult: 1500 Referring provider: DR. DANIEL Reason for consult: VANCOMYCIN DOSING Allergies: Coded Allergies: promethazine (From PHENERGAN) (05/01/17) Home Medications: Reported Medications Insulin Detemir (Levemir 10ML VIAL) 36 UNITS SC MORNING Insulin Aspart, Recombinant (Novolog VIAL) 12 UNITS SC TID Amlodipine Besylate (Amlodipine Besylate) 10 MG PO DAILY #30 Losartan Potassium (Losartan 50MG) 50 MG PO DAILY #30 Pregabalin (Pregabalin 50MG Capsule) 50 MG PO BID #60 Height (feet): 5 Height (inches): 10.00 Medical History: CAD? No Angina: No [place]: No Hypertension? Yes Hyperlipidemia? No CHF? No DVT? No PE? No COPD? No Asthma? No Anemia? No GERD? No Gastric ulcers? No GI Bleed? No Hernia? No Thyroid Problems? No Hypothyroidism? No CVA? No Seizures? No Diabetes? Yes Insulin Dependent: Yes Insulin Pump: No Home FSBS? Yes Renal Insuffiency? Yes UTI? No Stones? No BPH? No GB Disease: No Nephritic Syndrome? No Asplenia? No Hepatitis? No Sickle Cell Disease? No Arthritis? No Migraines? No Cataracts? No Glaucoma? No MRSA? No HIV? No TB? No Anxiety? No Depression? No Cancer? No More? Yes Additional hx: DIABETIC ISSUE WITH EYE (GETS SHOTS) Labs: Laboratory Tests 05/02/17 0617: POC Glucose 199 H 05/02/17 0602: Sodium 142, Potassium 4.3, Chloride 104, Carbon Dioxide 30, BUN 28 H, Creatinine 1.2, Estimated Creat Clear 123, Estimated GFR (MDRD) 67, Glucose 185 H, Calcium 8.2 L 05/02/17 0602: Total Bilirubin 0.5, Direct Bilirubin 0.12, Indirect Bilirubin 0.38, AST 17, ALT 72, Alkaline Phosphatase 73, Total Protein 6.0 L, Albumin 3.2 L, WBC 7.2, RBC 3.70 L, Hgb 10.6 L, Hct 33.1 L, MCV 89.4, RDW 14.4, Plt Count 207, MPV 8.0, Gran % 78.5, Gran # 5.7, Lymphocytes % 16.2, Monocytes % 3.1, Eosinophils % 2.0, Basophils % 0.2, Lymphocytes # 1.2, Monocytes # 0.2, Eosinophils # 0.1, Basophils # 0.0, PUBS MCHC 32.1, MCH 28.7 05/01/17 2041: POC Glucose 123 H 05/01/17 1700: POC Glucose 205 H 05/01/17 1505: Creatine Kinase 273, CK-MB (CK-2) Rel Index 1.0, CK and CKMB Interp 2.8, Troponin I < 0.02 Microbiology 05/01 1505 BLOOD: Anaerobic Blood Culture - RECD 05/01 1505 BLOOD: Aerobic Blood Culture - RECD 05/01 1505 BLOOD: Anaerobic Blood Culture - RES 05/01 1505 BLOOD: Aerobic Blood Culture - RES Problem List: 1. Bloodstream infection Plan: BASED ON PATIENT FACTORS, RECOMMEND VANCOMYCIN 2 GM IV Q12H. PHARMACY WILL FOLLOW DAILY AND ADJUST APPROPRIATE. at 1501
[2017-05-03] VITALS (8 sets, daily range): BP systolic 149–174; BP diastolic 88–111
--- NOTE | 2017-05-03 07:02 | ACUTE CARE PROGRESS NOTE (QUA) ---
Progress Notes Subjective Date 05/03/17 Time 0658 Note Patient reports feeling well. Yesterday in the late morning a blood culture returned growing a staphylococcal species that remains unidentified. He was started on vancomycin. He denies any episodes of shortness of breath yesterday and has been ambulating without difficulty. Patient is awake and alert. Lungs are clear. Heart has a regular rate and rhythm with a systolic murmur at the apex III/. Extremities have mild edema. There are no open wounds except for the small pustule in the LEFT antecubital space. Continue vancomycin until organism is identified. This could be a contaminant although patient does have a small pustule at a previous IV site. Plan for stress test in the morning due to his episode of flash pulmonary edema that led to hospitalization Objective Findings Last VS-Temp:98.5 B/P:149/89 Pulse:99 Resp:16 SaO2:91 ROOM AIR Last weight lbs:232 oz:5 K.375 Method:Bed Scales Laboratory Tests 05/03/17 0618: POC Glucose 170 H 05/02/17 2037: POC Glucose 157 H 05/02/17 1703: POC Glucose 309 *H Assessment/Plan Problem List 1. Congestive heart failure Qualifiers: Congestive heart failure type: diastolic Congestive heart failure chronicity: acute Qualified Code: I50.31 - Acute diastolic (congestive) heart failure 2. Elevated liver function tests 3. Hypertension 4. IDDM (insulin dependent diabetes mellitus) 5. Diabetic neuropathy 6. Bloodstream infection 7. Bacteremia due to Staphylococcus Patient condition Stable This inpt stay is expected to cross 2 MNs from start of care Yes at 0701
[2017-05-04] VITALS: BP 155/96; BP 159/89
[2017-05-04 04:00] VITALS: BP 140/78
[2017-05-04 07:01] LABS: LYMPH # 0.7 K/mm3 (0.7-4.5); LYMPH % 7.9 % (10-50)
[2017-05-04 07:17] LABS: HEMOGLOBIN 11.8 g/dL (14.1-18.0)
--- NOTE | 2017-05-04 07:24 | RADIOLOGY REPORT PS360 ---
CHEST(2 VIEWS-NOT PORTABLE) HISTORY: CHF, chest pressure, shortness of breath follow up chf ORDERING PHYSICIAN: Dionicio Morales MD PATIENT AGE: 41 years COMPARISON: 05/01/2017 FINDINGS: The cardiomediastinal silhouette and pulmonary vascularity are within normal limits. . Recently noted interstitial edema has improved. There are small bilateral pleural effusions. No lobar consolidation or collapse. IMPRESSION: 1. Interval improvement in the interstitial edema. 2. Small residual bilateral pleural effusions
[2017-05-04 09:01] LABS: NEUTROPHILS 89 % (42-76)
[2017-05-04 10:24] VITALS: BP 140/78
[2017-05-04 12:30] VITALS: BP 147/92
--- NOTE | 2017-05-04 15:27 | CONSULT NOTE ---
Pharmacokinetic Consult Date of consult: 05/04/17 Time of consult: 1524 Referring provider: DR. DANIEL Reason for consult: VANCOMYCIN TROUGH LEVEL Allergies: Coded Allergies: promethazine (From PHENERGAN) (05/01/17) Home Medications: Reported Medications Insulin Detemir (Levemir 10ML VIAL) 36 UNITS SC MORNING Insulin Aspart, Recombinant (Novolog VIAL) 12 UNITS SC TID Amlodipine Besylate (Amlodipine Besylate) 10 MG PO DAILY #30 Losartan Potassium (Losartan 50MG) 50 MG PO DAILY #30 Pregabalin (Pregabalin 50MG Capsule) 50 MG PO BID #60 Height (feet): 5 Height (inches): 10.00 Medical History: CAD? No Angina: No [place]: No Hypertension? Yes Hyperlipidemia? No CHF? No DVT? No PE? No COPD? No Asthma? No Anemia? No GERD? No Gastric ulcers? No GI Bleed? No Hernia? No Thyroid Problems? No Hypothyroidism? No CVA? No Seizures? No Diabetes? Yes Insulin Dependent: Yes Insulin Pump: No Home FSBS? Yes Renal Insuffiency? Yes UTI? No Stones? No BPH? No GB Disease: No Nephritic Syndrome? No Asplenia? No Hepatitis? No Sickle Cell Disease? No Arthritis? No Migraines? No Cataracts? No Glaucoma? No MRSA? No HIV? No TB? No Anxiety? No Depression? No Cancer? No More? Yes Additional hx: DIABETIC ISSUE WITH EYE (GETS SHOTS) Labs: Laboratory Tests 05/04/17 1425: Vancomycin Trough 21.9 H 05/04/17 0630: Sodium 138, Potassium 5.0, Chloride 99, Carbon Dioxide 33 H, BUN 29 H, Creatinine 1.3, Estimated Creat Clear 112, Estimated GFR (MDRD) 61, Glucose 338 H, Calcium 7.8 L, WBC 8.7, RBC 4.00 L, Hgb 11.8 L, Hct 36.4 L, MCV 91.0, RDW 14.0, Plt Count 220, MPV 7.4, Gran % 87.4 H, Gran # 7.6, Total Counted 100, Lymphocytes % 7.9 L, Monocytes % 3.4, Eosinophils % 1.1, Basophils % 0.2, Neutrophils 89 H, Lymphocytes (Manual) 6 L, Lymphocytes # 0.7, Monocytes ( Manual) 5, Monocytes # 0.3, Eosinophils # 0.1, Basophils # 0.0, Platelet Estimate NORMAL, PUBS MCHC 32.3, MCH 29.4 05/03/17 2015: POC Glucose 200 H 05/03/17 1655: POC Glucose 206 H Problem List: 1. Bloodstream infection Plan: BASED ON VANCOMYCIN TROUGH LEVEL AND PATIENT FACTORS, RECOMMEND CHANGING INTERVAL TO VANCOMYCIN 2 GM IV Q18H. PATIENT'S SRCR HAS INCREASED FROM 1.0 TO 1.3. PHARMACY WILL CONTINUE TO FOLLOW DAILY AND ADJUST APPROPRIATE. at 7194
--- NOTE | 2017-05-04 15:29 | RADIOLOGY REPORT PS360 ---
CARDIOLITE SPECT MYOCARDIAL PERFUSION SCAN, REST AND STRESS: EXERCISE STRESS [facility] REVIEW QGS EF AND WALL MOTION EVALUATION: QPS - PERFUSION EVALUATION HISTORY: Chest pain, SOB, HTN, DM, CHF DOSE: 10.39 mCi technetium 99m mibi intravenously at rest followed by 31.2 mCi technetium 99m mibi following the intravenous ministration of 0.4 mg of Lexiscan. Resting blood pressure is 188/104. Stress blood pressure 142/71. FINDINGS: Ejection fraction is calculated to be 67%. Uniform myocardial activity with both stress and rest gated images calculated ejection fraction of 67% with normal wall motion IMPRESSION: No scintigraphic evidence of Lexiscan-induced myocardial ischemia with normal ejection fraction and normal wall motion
--- NOTE | 2017-05-04 15:29 | RADIOLOGY REPORT PS360 ---
CARDIOLITE SPECT MYOCARDIAL PERFUSION SCAN, REST AND STRESS: EXERCISE STRESS [facility] REVIEW QGS EF AND WALL MOTION EVALUATION: QPS - PERFUSION EVALUATION HISTORY: Chest pain, SOB, HTN, DM, CHF DOSE: 10.39 mCi technetium 99m mibi intravenously at rest followed by 31.2 mCi technetium 99m mibi following the intravenous ministration of 0.4 mg of Lexiscan. Resting blood pressure is 188/104. Stress blood pressure 142/71. FINDINGS: Ejection fraction is calculated to be 67%. Uniform myocardial activity with both stress and rest gated images calculated ejection fraction of 67% with normal wall motion IMPRESSION: No scintigraphic evidence of Lexiscan-induced myocardial ischemia with normal ejection fraction and normal wall motion
[2017-05-04] MEDS ORDERED: LASIX20 MG PO (16:25)
[2017-05-04 18:59] VITALS: BP 147/92
--- NOTE | 2017-05-05 08:45 | Discharge Summary ---
Demographics Admit date: 05/01/17 Discharge date: 05/04/17 Discharge diagnoses Problem List 1. Congestive heart failure 2. Elevated liver function tests 3. Hypertension 4. IDDM (insulin dependent diabetes mellitus) 5. Diabetic neuropathy 6. Bloodstream infection 7. Bacteremia due to Staphylococcus History of present illness History of present illness 41-year-old male with long history of uncontrolled diabetes with neuropathy and hypertension presented to the emergency department after awakening on the morning of May 01 with shortness of breath. Dyspnea was so severe he returned to the emergency department where his O2 sats were in the high 70s. Patient had signs and symptoms consistent with acute congestive heart failure and his chest x-ray showed pulmonary edema. Patient had been hospitalized approximately 10 days prior and during that hospitalization had had an echocardiogram which showed a hyperdynamic ventricle with normal ejection fraction and no signs of diastolic dysfunction. Patient was given Lasix in the emergency department and had 2 L of urine output which helped relieve dyspnea. Patient was admitted for further monitoring, IV Lasix, serial enzymes. Overnight the patient developed acute onset of a migraine headache with a stabbing pain in the yazdanism, nausea, vomiting and phonophobia. Patient denies having any chest pain. He has noted that his legs and been more swollen recently than baseline. Patient also admits he felt like his abdomen has been swollen. Patient was admitted and placed on Lasix which he responded to very well with excellent diuresis and improvement in both his shortness of breath and he is pedal edema. Patient was able to be weaned from oxygen during the day but maintaining an oxygen requirement at night with room air sats dropping to 77 percent overnight on the day before discharge. Because of the mysterious nature of the patient's acute pulmonary edema patient was kept inpatient and scheduled for a stress test. Patient had a negative echocardiogram 2 weeks prior in regards to LV dysfunction. Patient underwent Cardiolite stress testing on April 03. There was no evidence of ischemia. I believe it is likely that [id number] blood pressure is what led to the patient's episode of flash pulmonary edema. This was discussed with the patient. He will restart losartan in addition to amlodipine and will be started on Lasix 20 mg daily. Patient will also need outpatient sleep study. Within 24 hours of admission patient had a blood culture returned a staphylococcal species. Patient was started on vancomycin. Ultimately only one of 4 blood cultures was abnormal in the organism grown staph capitis. If this is a organism that colonized skin and hair follicles it was felt this was likely a contaminant as patient had no other signs of infection and no open wounds. Patient will not require antibiotics at discharge. Medications Medications: Discharge meds are as noted. Follow up Follow up in office in: as scheduled with: Dionicio Morales MD at 0844
--- OUTSIDE RECORDS SUMMARY | 2017-06-05 02:54 | External Medical Summary Rpt ---
Author Author , VILLA DRIVER Address Unknown Phone [email or web address] Purpose Continuity of Care Document - 07-14-2016 through 2016 Problems Code Diagnosis DOS Provider Status E10.65 TYPE 1 DIABETES MELLITUS WITH HYPERGLYCEM IA E10.9 TYPE 1 DIABETES MELLITUS WITHOUT COMPLICATIO NS E11.9 TYPE 2 DIABETES MELLITUS WITHOUT COMPLICATIO NS E13.10 OTH DIABETES MELLITUS WITH KETOACIDOSI S WITHOUT COMA E86.0 DEHYDRATION I50.9 HEART FAILURE, UNSPECIFIED J40 BRONCHITIS, NOT SPECIFIED ACUTE OR CHRONIC K52.9 NONINFECTIV E GASTROENTER ITIS AND COLITIS, UNSPECIFIED L03.019 CELLULITIS OF UNSPECIFIED FINGER R73.9 HYPERGLYCEM IA, UNSPECIFIED R79.89 OTHER SPECIFIED ABNORMAL FINDINGS OF BLOOD CHEMISTRY R93.5 ABN FINDINGS ON DX IMAGING OF ABD REGIONS, INC RETROPERITO N R93.8 ABNORMAL FINDINGS ON DIAGNOSTIC IMAGING OF BODY STRUCTURES S82.891A OTH FRACTURE OF RIGHT LOWER LEG, INIT FOR CLOS FX Results Labs Lab Lab Date Result Refere Interp Status Commen Order Detail nces retati t Range on Differential panel, method unspecified - (05-04-2017 06:30) LYMPH 6 % 10% - Low complet 017 50% ed 06:30 Platele NORMAL complet ts 017 ed [Presen 06:30 ce] in Blood by Light microsc opy Gas panel in Arterial blood (05-01-2017 11:55) Arteria ACCEPTA complet l 017 BLE ed patency 11:55 Wrist artery --pre arteria l punctur e SOURCE RIGHT complet 017 RADIAL ed 11:55 Differential panel, method unspecified - (04-25-2017 06:11) LYMPH 9 % 10% - Low complet 017 50% ed 06:11 Platele 2 NORMAL complet ts 017 ed [Presen 06:11 ce] in Blood by Light microsc opy Urinalysis dipstick W Reflex Microscopic panel in Urine (04-22-2017 14:16) Bacteri 24-2 TRACE O complet a 017 ed [Presen 14:16 ce] in Urine sedimen t by Light microsc opy Urinalysis dipstick W Reflex Microscopic panel in Urine (04-22-2017 14:16) Appeara 04-22-2 CLEAR CLEAR complet nce of 017 ed Urine 14:16 Bilirub NEGATIV NEG complet in 017 E ed [Presen 14:16 ce] in Urine by Test strip Erythro TRACE-L NEG complet cytes 017 YSED ed [Presen 14:16 ce] in Urine Color 2 YELLOW YELLOW complet of 017 ed Urine 14:16 Ketones NEGATIV NEG complet 017 E ed [Presen 14:16 ce] in Urine by Automat ed test strip Mucus NEGATIV NEG complet [Presen 017 E ed ce] in 14:16 Urine sedimen t by Light microsc opy Nitrite NEGATIV NEG complet 017 E ed [Presen 14:16 ce] in Urine by Test strip Urobili 0.2 NEG complet nogen 017 ed [Presen 14:16 ce] in Urine by Test strip Differential panel, method unspecified - (04-22-2017 11:30) LYMPH 04-22-2 7 % 10% - Low complet 017 50% ed 11:30 Platele NORMAL complet ts 017 ed [Presen 11:30 ce] in Blood by Light microsc opy UA Dipstick Pnl Ur (07-14-2016 09:55) Comment: Urine microscopic not indicated. Urobili 1.0 0.2 complet nogen 016 E.U./dL E.U./dL ed Ur Ql 09:55 , 1.0 Strip E.U./dL Nitrite [id number] Negativ complet Ur Ql 016 09 e ed Strip 09:55 Negativ e SCT Leukocy [id number] Negativ complet te 016 09 e ed esteras 09:55 Negativ e Ur Ql e SCT Strip.a uto Prot Ur [id number] Negativ complet Ql 016 09 e ed Strip 09:55 Negativ e SCT Hgb Ur 07-14- [id number] Negativ complet Ql 016 09 e ed Strip.a 09:55 Negativ uto e SCT Bilirub [id number] Negativ complet Ur Ql 016 09 e ed Strip 09:55 Negativ e SCT Ketones [id number] Negativ complet Ur Ql 016 09 e ed Strip 09:55 Negativ e SCT Glucose >=1000 Negativ complet Ur 016 mg/dL e ed Strip-m 09:55 (3+) Cnc Sp Gr 07-14-2 1.024 1.001-1 complet Ur 016 .030 ed Strip 09:55 pH Ur 5.5 5.0-8.0 complet Strip.a 016 ed uto 09:55 Clarity 07-14- [id number] Clear complet Ur 016 01 ed 09:55 Clear SCT Color 07-14- [id number] Yellow, complet Ur 016 09 Straw ed 09:55 Yellow color SCT
--- OUTSIDE RECORDS SUMMARY | 2017-06-05 02:54 | External Medical Summary Rpt ---
Author Author , VILLA DRIVER Address Unknown Phone [email or web address] Purpose Continuity of Care Document - 07-14-2016 [...] Ql 09:55 , 1.0 Strip E.U./dL Nitrite [id number] Negativ complet Ur Ql 016 09 e ed Strip 09:55 Negativ e SCT Leukocy [id number] Negativ complet te 016 09 e ed esteras 09:55 Negativ e Ur Ql e SCT Strip.a uto Prot Ur [id number] Negativ complet Ql 016 09 e ed Strip 09:55 Negativ e SCT Hgb Ur 07-14- [id number] Negativ complet Ql 016 09 e ed Strip.a 09:55 Negativ uto e SCT Bilirub [id number] Negativ complet Ur Ql 016 09 e ed Strip 09:55 Negativ e SCT Ketones [id number] Negativ complet Ur Ql 016 09 e ed Strip 09:55 Negativ e SCT Glucose >=1000 Negativ complet Ur 016 mg/dL e ed Strip-m 09:55 (3+) Cnc Sp Gr 07-14-2 1.024 1.001-1 complet Ur 016 .030 ed Strip 09:55 pH Ur 5.5 5.0-8.0 complet Strip.a 016 ed uto 09:55 Clarity 07-14- [id number] Clear complet Ur 016 01 ed 09:55 Clear SCT Color 07-14- [id number] Yellow, complet Ur 016 09 Straw ed 09:55 Yellow color SCT
--- OUTSIDE RECORDS SUMMARY | 2017-06-05 02:55 | External Medical Summary Rpt ---
Demographics Preferred Language Kiswahili Marital Status Unknown [employer] Affiliation Unknown Race Unknown Ethnic Group Unknown Author Author VILLA Address Unknown Phone Immunization No patient found.
--- OUTSIDE RECORDS SUMMARY | 2017-06-05 02:55 | External Medical Summary Rpt ---
Demographics Preferred Language Divehi Marital Status Unknown Advent Affiliation Unknown Race Unknown Ethnic Group Unknown Author Author VILLA Address Unknown Phone Immunization No patient found.
--- OUTSIDE RECORDS SUMMARY | 2017-06-05 02:57 | External Medical Summary Rpt ---
Author Author SELVINANNETTE Osman, [employer] Address Unknown Phone Unavailable Results Vancomycin [Mass/volume] in Serum or Plasma --trough Observa Value Referen Units Interpr Notes Date tion ce etation Range Vancomyci 5.0 - mcg/mL High RESULTS Sep 5 n 10.0 CALLED TO 2017 2:25 [Mass/vol PM ume] in PHARMACIS Serum or T: SHADIA Plasma E. --trough 7 [address],[place] Glucose [Mass/volume] in Capillary blood by Glucometer Observa Value Referen Units Interpr Notes Date tion ce etation Range Glucose 70 - 110 mg/dl High No Sep 5 [Mass/vol alert informati 2017 ume] in on in 12:12 PM Capillary source blood by data Glucomete r CBC W Auto Differential panel in Blood Observa Value Referen Units Interpr Notes Date tion ce etation Range Basophils 0 - 0.2 K/MM3 Normal No Sep 5 informati 2017 6:30 [#/volume on in AM ] in source Blood by data Automated count Basophils 0.1 - 2.0 % Normal No Sep 5 /100 informati 2017 6:30 leukocyte on in AM s in source Blood by data Automated count Eosinophi 0.0 - 0.4 K/mm3 Normal No Sep 5 ls informati 2016 6:30 [#/volume on in AM ] in source Blood by data Automated count Eosinophi 0.1 - % Normal No Sep 5 ls/100 12.0 informati 2017 6:30 leukocyte on in AM s in source Blood by data Automated count Granulocy 1.3 - 8.0 K/mm3 Normal No Sep 5 lauro informati 2017 6:30 [#/volume on in AM ] in source Blood by data Automated count Granulocy 37.0 - % High No Sep 5 lauro/100 80.0 informati 2017 6:30 leukocyte on in AM s in source Blood by data Automated count Hematocri 42.0 - % Low No Sep 5 t [Volume 52.0 informati 2017 6:30 on in AM Fraction] source of Blood data Hemoglobi 14.1 - g/dL Low No Sep 5 n 18.0 informati 2017 6:30 [Mass/vol on in AM ume] in source Blood data Lymphocyt 0.7 - 4.5 K/mm3 Normal No Sep 5 es informati 2017 6:30 [#/volume on in AM ] in source Unspecifi data ed specimen by Automated count Lymphocyt 10 - 50 % Low No Sep 5 es informati 2017 6:30 [#/volume on in AM ] in source Unspecifi data ed specimen by Automated count Erythrocy 27 - 31.2 pg Normal No Sep 5 te mean informati 2017 6:30 corpuscul on in AM ar source hemoglobi data n [Entitic mass] Erythrocy 31.8 - g/dl Normal No Sep 5 te mean 35.4 informati 2017 6:30 corpuscul on in AM ar source hemoglobi data n concentra tion [Mass/vol ume] by Automated count Erythrocy 82.2 - fl Normal No Sep 5 te mean 97.8 informati 2017 6:30 corpuscul on in AM ar volume source [Entitic data volume] by Automated count Monocytes 0.1 - 1.0 K/mm3 Normal No Sep 5 informati 2017 6:30 [#/volume on in AM ] in source Blood by data Automated count Monocytes 1.7 - 9.3 % Normal No Sep 5 /100 informati 2017 6:30 leukocyte on in AM s in source Blood by data Automated count Platelet 7.4 - fl Normal No Sep 5 mean 10.4 informati 2017 6:30 volume on in AM [Entitic source volume] data in Blood by Automated count Platelets 142 - 424 K/mm3 Normal No Sep 5 informati 2017 6:30 [#/volume on in AM ] in source Blood data Erythrocy 4.6 - 6.2 M/mm3 Low No Sep 5 lauro informati 2017 6:30 [#/volume on in AM ] in source Amniotic data fluid Erythrocy 11.5 - % Normal No Sep 5 te 17.5 informati 2017 6:30 distribut on in AM ion width source [Entitic data volume] by Automated count Leukocyte 4.8 - K/MM3 Normal No Sep 5 s 10.8 informati 2016 6:30 [#/volume on in AM ] in source Blood data Differential panel, method unspecified - Observa Value Referen Units Interpr Notes Date tion ce etation Range LYMPH 6 10 - 50 % Low No Sep 5 informa 2017 tion in 6:30 AM source data Monocytes 2 - 9 % Normal No Sep 5 /100 informati 2017 6:30 leukocyte on in AM s in source Blood by data Automated count Platele NORMAL No No No No Sep 5 ts informa informa informa informa 2016 [Presen tion in tion in tion in tion in 6:30 AM ce] in source source source source Blood data data data data by Light microsc opy Neutrophi 42 - 76 % High No Sep 5 ls informati 2017 6:30 [#/volume on in AM ] in source Blood by data Automated count Cells No #CELLS No No Sep 5 Counted informati informati informati 2017 6:30 Total [#] on in on in on in AM in Blood source source source data data data Basic metabolic panel in Blood Observa Value Referen Units Interpr Notes Date tion ce etation Range Urea 7 - 18 mg/dL High No Sep 5 nitrogen informati 2017 6:30 [Mass/vol on in AM ume] in source Serum or data Plasma Calcium 8.5 - mg/dL Low No Sep 5 [Mass/vol 10.1 informati 2017 6:30 ume] in on in AM Serum or source Plasma data Chloride 98 - 107 mmoL/L Normal No Sep 5 [Moles/vo informati 2017 6:30 lume] in on in AM Serum or source Plasma data Carbon 21.0 - mmoL/L High No Sep 5 dioxide, 32.0 informati 2017 6:30 total on in AM [Moles/vo source lume] in data Serum or Plasma Creatinin 0.70 - mg/dL No No Sep 5 e 1.30 informati informati 2017 6:30 [Mass/vol on in on in AM ume] in source source Serum or data data Plasma Creatinin 50 - 200 ML/MIN No No Sep 5 e renal informati informati 2017 6:30 clearance on in on in AM source source predicted data data by Cockcroft -Gault formula Estimated >60 ML/MIN No REFERENCE Sep 5 informati RANGE: 2017 6:30 glomerula on in >60 AM r source ML/MIN/1. filtratio data 73 SQUARE n rate METERSIf (GF this patient is -A merican, then multiply theresult by 1.210. Glucose 74 - 106 mg/dL High No Sep 5 [Mass/vol informati 2017 6:30 ume] in on in AM Serum or source Plasma data Potassium 3.5 - 5.1 mmoL/L Normal No Sep 5 informati 2017 6:30 [Moles/vo on in AM lume] in source Serum or data Plasma Sodium 136 - 145 mmoL/L Normal No Sep 5 [Moles/vo informati 2017 6:30 lume] in on in AM Serum or source Plasma data Glucose [Mass/volume] in Capillary blood by Glucometer Observa Value Referen Units Interpr Notes Date tion ce etation Range Glucose 70 - 110 mg/dl High No Sep 4 [Mass/vol informati 2016 8:15 ume] in on in PM Capillary source blood by data Glucomete r Glucose [Mass/volume] in Capillary blood by Glucometer Observa Value Referen Units Interpr Notes Date tion ce etation Range Glucose 70 - 110 mg/dl High No Sep 4 [Mass/vol informati 2016 4:55 ume] in on in PM Capillary source blood by data Glucomete r Glucose [Mass/volume] in Capillary blood by Glucometer Observa Value Referen Units Interpr Notes Date tion ce etation Range Glucose 70 - 110 mg/dl High No Sep 4 [Mass/vol informati 2017 ume] in on in 11:50 AM Capillary source blood by data Glucomete r Glucose [Mass/volume] in Capillary blood by Glucometer Observa Value Referen Units Interpr Notes Date tion ce etation Range Glucose 70 - 110 mg/dl High No Sep 4 [Mass/vol informati 2016 6:18 ume] in on in AM Capillary source blood by data Glucomete r Basic metabolic panel in Blood Observa Value Referen Units Interpr Notes Date tion ce etation Range Urea 7 - 18 mg/dL High No Sep 4 nitrogen informati 2017 6:08 [Mass/vol on in AM ume] in source Serum or data Plasma Calcium 8.5 - mg/dL Low No Sep 4 [Mass/vol 10.1 informati 2017 6:08 ume] in on in AM Serum or source Plasma data Chloride 98 - 107 mmoL/L Normal No Sep 4 [Moles/vo informati 2017 6:08 lume] in on in AM Serum or source Plasma data Carbon 21.0 - mmoL/L High No Sep 4 dioxide, 32.0 informati 2017 6:08 total on in AM [Moles/vo source lume] in data Serum or Plasma Creatinin 0.70 - mg/dL Normal No Sep 4 e 1.30 informati 2017 6:08 [Mass/vol on in AM ume] in source Serum or data Plasma Creatinin 50 - 200 ML/MIN Normal No Sep 4 e renal informati 2017 6:08 clearance on in AM source predicted data by Cockcroft -Gault formula Estimated >60 ML/MIN No REFERENCE Sep 4 informati RANGE: 2017 6:08 glomerula on in >60 AM r source ML/MIN/1. filtratio data 73 SQUARE n rate METERSIf (GF this patient is -A merican, then multiply theresult by 1.210. Glucose 74 - 106 mg/dL High No Sep 4 [Mass/vol informati 2017 6:08 ume] in on in AM Serum or source Plasma data Potassium 3.5 - 5.1 mmoL/L Normal No Sep 4 informati 2017 6:08 [Moles/vo on in AM lume] in source Serum or data Plasma Sodium 136 - 145 mmoL/L Normal No Sep 4 [Moles/vo informati 2017 6:08 lume] in on in AM Serum or source Plasma data Glucose [Mass/volume] in Capillary blood by Glucometer Observa Value Referen Units Interpr Notes Date tion ce etation Range Glucose 70 - 110 mg/dl High No Sep 3 [Mass/vol informati 2017 8:37 ume] in on in PM Capillary source blood by data Glucomete r Glucose [Mass/volume] in Capillary blood by Glucometer Observa Value Referen Units Interpr Notes Date tion ce etation Range Glucose 70 - 110 mg/dl High No Sep 3 [Mass/vol alert informati 2017 5:03 ume] in on in PM Capillary source blood by data Glucomete r Glucose [Mass/volume] in Capillary blood by Glucometer Observa Value Referen Units Interpr Notes Date tion ce etation Range Glucose 70 - 110 mg/dl High No Sep 3 [Mass/vol informati 2017 ume] in on in 11:45 AM Capillary source blood by data Glucomete r Glucose [Mass/volume] in Capillary blood by Glucometer Observa Value Referen Units Interpr Notes Date tion ce etation Range Glucose 70 - 110 mg/dl High No Sep 3 [Mass/vol informati 2017 6:17 ume] in on in AM Capillary source blood by data Glucomete r Hepatic function 2000 panel in Serum or Plasma Observa Value Referen Units Interpr Notes Date tion ce etation Range Albumin 3.4 - 5.0 gm/dL Low No Sep 3 [Mass/vol informati 2017 6:02 ume] in on in AM Serum or source Plasma data Alkaline 46 - 116 U/L Normal No Sep 3 phosphata informati 2017 6:02 se on in AM [Enzymati source c data activity/ volume] in Serum or Plasma Bilirubin 0.0 - 0.2 mg/dL Normal No Sep 3 .direct informati 2017 6:02 [Mass/vol on in AM ume] in source Serum or data Plasma Bilirubin 0 - 0.9 mg/dL Normal No Sep 3 .indirect informati 2017 6:02 on in AM [Mass/vol source ume] in data Serum or Plasma Bilirubin 0.2 - 1.0 mg/dL Normal No Sep 3 .total informati 2017 6:02 [Mass/vol on in AM ume] in source Serum or data Plasma Aspartate 15 - 37 U/L Normal No Sep 3 informati 2017 6:02 aminotran on in AM sferase source [Enzymati data c activity/ volume] in Serum or Plasma Alanine 12 - 78 U/L Normal No Sep 3 aminotran informati 2017 6:02 sferase on in AM [Enzymati source c data activity/ volume] in Serum or Plasma Protein 6.4 - 8.2 gm/dL Low No Sep 3 [Mass/vol informati 2017 6:02 ume] in on in AM Serum or source Plasma data Basic metabolic panel in Blood Observa Value Referen Units Interpr Notes Date tion ce etation Range Urea 7 - 18 mg/dL High No Sep 3 nitrogen informati 2017 6:02 [Mass/vol on in AM ume] in source Serum or data Plasma Calcium 8.5 - mg/dL Low No Sep 3 [Mass/vol 10.1 informati 2017 6:02 ume] in on in AM Serum or source Plasma data Chloride 98 - 107 mmoL/L Normal No Sep 3 [Moles/vo informati 2017 6:02 lume] in on in AM Serum or source Plasma data Carbon 21.0 - mmoL/L Normal No Sep 3 dioxide, 32.0 informati 2017 6:02 total on in AM [Moles/vo source lume] in data Serum or Plasma Creatinin 0.70 - mg/dL Normal No Sep 3 e 1.30 informati 2017 6:02 [Mass/vol on in AM ume] in source Serum or data Plasma Creatinin 50 - 200 ML/MIN Normal No Sep 3 e renal informati 2017 6:02 clearance on in AM source predicted data by Cockcroft -Gault formula Estimated >60 ML/MIN No REFERENCE Sep 3 informati RANGE: 2017 6:02 glomerula on in >60 AM r source ML/MIN/1. filtratio data 73 SQUARE n rate METERSIf (GF this patient is -A merican, then multiply theresult by 1.210. Glucose 74 - 106 mg/dL High No Sep 3 [Mass/vol informati 2017 6:02 ume] in on in AM Serum or source Plasma data Potassium 3.5 - 5.1 mmoL/L Normal No Sep 3 informati 2017 6:02 [Moles/vo on in AM lume] in source Serum or data Plasma Sodium 136 - 145 mmoL/L Normal No Sep 3 [Moles/vo informati 2017 6:02 lume] in on in AM Serum or source Plasma data CBC W Auto Differential panel in Blood Observa Value Referen Units Interpr Notes Date tion ce etation Range Basophils 0 - 0.2 K/MM3 Normal No Sep 3 informati 2017 6:02 [#/volume on in AM ] in source Blood by data Automated count Basophils 0.1 - 2.0 % Normal No Sep 3 /100 informati 2017 6:02 leukocyte on in AM s in source Blood by data Automated count Eosinophi 0.0 - 0.4 K/mm3 Normal No Sep 3 ls informati 2017 6:02 [#/volume on in AM ] in source Blood by data Automated count Eosinophi 0.1 - % Normal No Sep 3 ls/100 12.0 informati 2017 6:02 leukocyte on in AM s in source Blood by data Automated count Granulocy 1.3 - 8.0 K/mm3 Normal No Sep 3 lauro informati 2017 6:02 [#/volume on in AM ] in source Blood by data Automated count Granulocy 37.0 - % Normal No Sep 3 lauro/100 80.0 informati 2017 6:02 leukocyte on in AM s in source Blood by data Automated count Hematocri 42.0 - % Low No Sep 3 t [Volume 52.0 informati 2017 6:02 on in AM Fraction] source of Blood data Hemoglobi 14.1 - g/dL Low No Sep 3 n 18.0 informati 2017 6:02 [Mass/vol on in AM ume] in source Blood data Lymphocyt 0.7 - 4.5 K/mm3 Normal No Sep 3 es informati 2017 6:02 [#/volume on in AM ] in source Unspecifi data ed specimen by Automated count Lymphocyt 10 - 50 % Normal No Sep 3 es informati 2017 6:02 [#/volume on in AM ] in source Unspecifi data ed specimen by Automated count Erythrocy 27 - 31.2 pg Normal No Sep 3 te mean informati 2017 6:02 corpuscul on in AM ar source hemoglobi data n [Entitic mass] Erythrocy 31.8 - g/dl Normal No Sep 3 te mean 35.4 informati 2017 6:02 corpuscul on in AM ar source hemoglobi data n concentra tion [Mass/vol ume] by Automated count Erythrocy 82.2 - fl Normal No Sep 3 te mean 97.8 informati 2017 6:02 corpuscul on in AM ar volume source [Entitic data volume] by Automated count Monocytes 0.1 - 1.0 K/mm3 Normal No Sep 3 informati 2017 6:02 [#/volume on in AM ] in source Blood by data Automated count Monocytes 1.7 - 9.3 % Normal No Sep 3 /100 informati 2017 6:02 leukocyte on in AM s in source Blood by data Automated count Platelet 7.4 - fl Normal No Sep 3 mean 10.4 informati 2017 6:02 volume on in AM [Entitic source volume] data in Blood by Automated count Platelets 142 - 424 K/mm3 Normal No Sep 3 informati 2017 6:02 [#/volume on in AM ] in source Blood data Erythrocy 4.6 - 6.2 M/mm3 Low No Sep 3 lauro informati 2017 6:02 [#/volume on in AM ] in source Amniotic data fluid Erythrocy 11.5 - % Normal No Sep 3 te 17.5 informati 2017 6:02 distribut on in AM ion width source [Entitic data volume] by Automated count Leukocyte 4.8 - K/MM3 Normal No Sep 3 s 10.8 informati 2016 6:02 [#/volume on in AM ] in source Blood data Glucose [Mass/volume] in Capillary blood by Glucometer Observa Value Referen Units Interpr Notes Date tion ce etation Range Glucose 70 - 110 mg/dl High No Sep 2 [Mass/vol informati 2016 8:41 ume] in on in PM Capillary source blood by data Glucomete r Glucose [Mass/volume] in Capillary blood by Glucometer Observa Value Referen Units Interpr Notes Date tion ce etation Range Glucose 70 - 110 mg/dl High No Sep 2 [Mass/vol informati 2016 5:00 ume] in on in PM Capillary source blood by data Glucomete r Gas panel in Arterial blood Observa Value Referen Units Interpr Notes Date ti ce etation Range Base -2.4-+2.3 MMOL/L High No Sep 2 excess in informati 2017 Arterial on in 11:55 AM blood source data Arteria ACCEPTA No No No No Sep 2 l BLE informa informa informa informa 2017 patency tion in tion in tion in tion in 11:55 Wrist source source source source AM artery data data data data --pre arteria l punctur e Bicarbona 22.0 - MMOL/L High No Sep 2 te 26.0 informati 2016 [Moles/vo on in 11:55 AM lume] in source Arterial data blood Oxygen No No No No Sep 2 content informati informati informati informati 2017 in on in on in on in on in 11:55 AM Arterial source source source source blood data data data data Carbon 35.0 - MMHG High Sep 2 dioxide 45.0 2016 [Partial CRITICAL 11:55 AM pressure] RESULTS in Arterial RESU blood LTS CALLED TO: AT 1205 05/01/17 [id number], Kathleen Barrera pH of 7.35 - MMOL/L Normal No Sep 2 Arterial 7.45 informati 2017 blood on in 11:55 AM source data Oxygen 80 - 100 MMHG Low alert Sep 2 [Partial 2017 pressure] CRITICAL 11:55 AM in RESULTS Arterial blood RESU LTS CALLED TO: AT 1205 05/01/17 [id number] Oxygen 90 - 100 % Low alert No Sep 2 saturatio informati 2017 n.calcula on in 11:55 AM natalee from source oxygen data partial pressure in Arterial blood SOURCE RIGHT No No No No Sep 2 RADIAL informa informa informa informa 2017 tion in tion in tion in tion in 11:55 source source source source AM data data data data Carbon 23 - 27 MMOL/L High No Sep 2 dioxide, informati 2017 total on in 11:55 AM [Moles/vo source lume] in data Arterial blood Acetone [Mass/volume] in Serum or Plasma Observa Value Referen Units Interpr Notes Date ti ce etation Range Acetone NOT No No No Sep 2 [Mass/vol DETECTD informati informati informati 2017 ume] in on in on in on in 10:15 AM Serum or source source source Plasma data data data Lactate [Moles/volume] in Blood Observa Value Referen Units Interpr Notes Date tion ce etation Range Lactate 0.4 - 2.0 mmol/L Normal No Sep 2 [Moles/vo informati 2017 lume] in on in 10:15 AM Blood source data Amylase [Enzymatic activity/volume] in Serum or Plasma Observa Value Referen Units Interpr Notes Date tion ce etation Range Amylase 25 - 115 U/L Low No Sep 2 [Enzymati informati 2017 c on in 10:15 AM activity/ source volume] data in Serum or Plasma Natriutietic peptide B [Mass/volume] in Serum or Plasma Observa Value Referen Units Interpr Notes Date tion ce etation Range Natriutie 0 - 100 pg/mL High No Sep 2 tic informati 2017 peptide B on in 10:15 AM source [Mass/vol data ume] in Serum or Plasma Comprehensive metabolic 2000 panel in Serum or Plasma Observa Value Referen Units Interpr Notes Date tion ce etation Range Albumin/G 1.1 - 1.8 No Low No Sep 2 lobulin informati informati 2017 [Mass on in on in 10:15 AM ratio] in source source Serum or data data Plasma Albumin 3.4 - 5.0 gm/dL Normal No Sep 2 [Mass/vol informati 2017 ume] in on in 10:15 AM Serum or source Plasma data Alkaline 46 - 116 U/L Normal No Sep 2 phosphata informati 2017 se on in 10:15 AM [Enzymati source c data activity/ volume] in Serum or Plasma Bilirubin 0.2 - 1.0 mg/dL Normal No Sep 2 .total informati 2017 [Mass/vol on in 10:15 AM ume] in source Serum or data Plasma Urea 7 - 18 mg/dL High No Sep 2 nitrogen informati 2017 [Mass/vol on in 10:15 AM ume] in source Serum or data Plasma Calcium 8.5 - mg/dL Low No Sep 2 [Mass/vol 10.1 informati 2017 ume] in on in 10:15 AM Serum or source Plasma data Chloride 98 - 107 mmoL/L Normal No Sep 2 [Moles/vo informati 2017 lume] in on in 10:15 AM Serum or source Plasma data Carbon 21.0 - mmoL/L Normal No Sep 2 dioxide, 32.0 informati 2017 total on in 10:15 AM [Moles/vo source lume] in data Serum or Plasma Creatinin 0.70 - mg/dL High No Sep 2 e 1.30 informati 2017 [Mass/vol on in 10:15 AM ume] in source Serum or data Plasma Creatinin 50 - 200 ML/MIN Normal No Sep 2 e renal informati 2017 clearance on in 10:15 AM source predicted data by Cockcroft -Gault formula Estimated >60 ML/MIN No REFERENCE Sep 2 informati RANGE: 2017 glomerula on in >60 10:15 AM r source ML/MIN/1. filtratio data 73 SQUARE n rate METERSIf (GF this patient is -A merican, then multiply theresult by 1.210. Globulin 1.3 - 3.2 gm/dL High No Sep 2 [Mass/vol informati 2017 ume] in on in 10:15 AM Serum source data Glucose 74 - 106 mg/dL High No Sep 2 [Mass/vol informati 2017 ume] in on in 10:15 AM Serum or source Plasma data Potassium 3.5 - 5.1 mmoL/L Normal No Sep 2 informati 2017 [Moles/vo on in 10:15 AM lume] in source Serum or data Plasma Sodium 136 - 145 mmoL/L Normal No Sep 2 [Moles/vo informati 2017 lume] in on in 10:15 AM Serum or source Plasma data Aspartate 15 - 37 U/L Normal No Sep 2 inform2016 aminotran on in 10:15 AM sferase source [Enzymati data c activity/ volume] in Serum or Plasma Alanine 12 - 78 U/L High No Sep 2 aminotran inform2016 sferase on in 10:15 AM [Enzymati source c data activity/ volume] in Serum or Plasma Protein 6.4 - 8.2 gm/dL Normal No Sep 2 [Mass/vol informati 2016 ume] in on in 10:15 AM Serum or source Plasma data Lipase [Enzymatic activity/volume] in Serum or Plasma Observa Value Referen Units Interpr Notes Date tion ce etation Range Lipase 73 - 393 U/L Normal No Sep 2 [Enzymati informati 2017 c on in 10:15 AM activity/ source volume] data in Serum or Plasma CBC W Auto Differential panel in Blood Observa Value Referen Units Interpr Notes Date tion ce etation Range Basophils 0 - 0.2 K/MM3 Normal No Sep 2 2016 [#/volume on in 10:15 AM ] in source Blood by data Automated count Basophils 0.1 - 2.0 % Normal No Sep 2 /100 2016 leukocyte on in 10:15 AM s in source Blood by data Automated count Eosinophi 0.0 - 0.4 K/mm3 Normal No Sep 2 ls 2016 [#/volume on in 10:15 AM ] in source Blood by data Automated count Eosinophi 0.1 - % Normal No Sep 2 ls/100 12.0 inform2016 leukocyte on in 10:15 AM s in source Blood by data Automated count Granulocy 1.3 - 8.0 K/mm3 Normal No Sep 2 lauro inform2016 [#/volume on in 10:15 AM ] in source Blood by data Automated count Granulocy 37.0 - % High No Sep 2 lauro/100 80.0 inform2016 leukocyte on in 10:15 AM s in source Blood by data Automated count Hematocri 42.0 - % Low No Sep 2 t [Volume 52.0 2016 on in 10:15 AM Fraction] source of Blood data Hemoglobi 14.1 - g/dL Low No Sep 2 n 18.0 2016 [Mass/vol on in 10:15 AM ume] in source Blood data Lymphocyt 0.7 - 4.5 K/mm3 Normal No Sep 2 es 2016 [#/volume on in 10:15 AM ] in source Unspecifi data ed specimen by Automated count Lymphocyt 10 - 50 % Normal No Sep 2 es 2016 [#/volume on in 10:15 AM ] in source Unspecifi data ed specimen by Automated count Erythrocy 27 - 31.2 pg Normal No Sep 2 te mean 2016 corpuscul on in 10:15 AM ar source hemoglobi data n [Entitic mass] Erythrocy 31.8 - g/dl Normal No Sep 2 te mean 35.4 2016 corpuscul on in 10:15 AM ar source hemoglobi data n concentra tion [Mass/vol ume] by Automated count Erythrocy 82.2 - fl Normal No Sep 2 te mean 97.8 2016 corpuscul on in 10:15 AM ar volume source [Entitic data volume] by Automated count Monocytes 0.1 - 1.0 K/mm3 Normal No Sep 2 2016 [#/volume on in 10:15 AM ] in source Blood by data Automated count Monocytes 1.7 - 9.3 % Normal No Sep 2 /100 2016 leukocyte on in 10:15 AM s in source Blood by data Automated count Platelet 7.4 - fl Normal No Sep 2 mean 10.4 2016 volume on in 10:15 AM [Entitic source volume] data in Blood by Automated count Platelets 142 - 424 K/mm3 Normal No Sep 2 2016 [#/volume on in 10:15 AM ] in source Blood data Erythrocy 4.6 - 6.2 M/mm3 Low No Sep 2 lauro 2016 [#/volume on in 10:15 AM ] in source Amniotic data fluid Erythrocy 11.5 - % Normal No Sep 2 te 17.5 2016 distribut on in 10:15 AM ion width source [Entitic data volume] by Automated count Leukocyte 4.8 - K/MM3 Normal No Sep 2 s 10.8 2016 [#/volume on in 10:15 AM ] in source Blood data Glucose [Mass/volume] in Capillary blood by Glucometer Observa Value Referen Units Interpr Notes Date tion ce etation Range Glucose 70 - 110 mg/dl High No Apr 26 [Mass/vol informati 2016 6:38 ume] in on in AM Capillary source blood by data Glucomete r Comprehensive metabolic 2000 panel in Serum or Plasma Observa Value Referen Units Interpr Notes Date tion ce etation Range Albumin/G 1.1 - 1.8 No Low No Apr 26 lobulin informati informati 2016 6:03 [Mass on in on in AM ratio] in source source Serum or data data Plasma Albumin 3.4 - 5.0 gm/dL Low No Apr 26 [Mass/vol informati 2016 6:03 ume] in on in AM Serum or source Plasma data Alkaline 46 - 116 U/L Normal No Apr 26 phosphata informati 2016 6:03 se on in AM [Enzymati source c data activity/ volume] in Serum or Plasma Bilirubin 0.2 - 1.0 mg/dL Normal No Apr 26 .total informati 2016 6:03 [Mass/vol on in AM ume] in source Serum or data Plasma Urea 7 - 18 mg/dL High No Apr 26 nitrogen informati 2017 6:03 [Mass/vol on in AM ume] in source Serum or data Plasma Calcium 8.5 - mg/dL Low No Apr 26 [Mass/vol 10.1 informati 2017 6:03 ume] in on in AM Serum or source Plasma data Chloride 98 - 107 mmoL/L Normal No Apr 26 [Moles/vo informati 2016 6:03 lume] in on in AM Serum or source Plasma data Carbon 21.0 - mmoL/L Normal No Apr 26 dioxide, 32.0 informati 2017 6:03 total on in AM [Moles/vo source lume] in data Serum or Plasma Creatinin 0.70 - mg/dL High No Apr 26 e 1.30 informati 2017 6:03 [Mass/vol on in AM ume] in source Serum or data Plasma Creatinin 50 - 200 ML/MIN Normal No Apr 26 e renal informati 2017 6:03 clearance on in AM source predicted data by Cockcroft -Gault formula Estimated >60 ML/MIN No REFERENCE Apr 26 informati RANGE: 2017 6:03 glomerula on in >60 AM r source ML/MIN/1. filtratio data 73 SQUARE n rate METERSIf (GF this patient is -A merican, then multiply theresult by 1.210. Globulin 1.3 - 3.2 gm/dL High No Apr 26 [Mass/vol informati 2017 6:03 ume] in on in AM Serum source data Glucose 74 - 106 mg/dL High No Apr 26 [Mass/vol informati 2016 6:03 ume] in on in AM Serum or source Plasma data Potassium 3.5 - 5.1 mmoL/L Normal No Apr 26 informati 2016 6:03 [Moles/vo on in AM lume] in source Serum or data Plasma Sodium 136 - 145 mmoL/L Normal No Apr 26 [Moles/vo informati 2017 6:03 lume] in on in AM Serum or source Plasma data Aspartate 15 - 37 U/L No No Apr 26 informati informati 2017 6:03 aminotran on in on in AM sferase source source [Enzymati data data c activity/ volume] in Serum or Plasma Alanine 12 - 78 U/L High No Apr 26 aminotran informati 2016 6:03 sferase on in AM [Enzymati source c data activity/ volume] in Serum or Plasma Protein 6.4 - 8.2 gm/dL Normal No Apr 26 [Mass/vol informati 2016 6:03 ume] in on in AM Serum or source Plasma data CBC W Auto Differential panel in Blood Observa Value Referen Units Interpr Notes Date tion ce etation Range Basophils 0 - 0.2 K/MM3 Normal No Apr 26 informati 2016 6:03 [#/volume on in AM ] in source Blood by data Automated count Basophils 0.1 - 2.0 % Normal No Apr 26 informati 2016 6:03 leukocyte on in AM s in source Blood by data Automated count Eosinophi 0.0 - 0.4 K/mm3 Normal No Apr 26 ls informati 2016 6:03 [#/volume on in AM ] in source Blood by data Automated count Eosinophi 0.1 - % Normal Apr 26 ls/100 12.0 informati 2016 6:03 leukocyte on in AM s in source Blood by data Automated count Granulocy 1.3 - 8.0 K/mm3 Normal No Apr 26 lauro informati 2017 6:03 [#/volume on in AM ] in source Blood by data Automated count Granulocy 37.0 - % High No Apr 26 lauro/100 80.0 informati 2016 6:03 leukocyte on in AM s in source Blood by data Automated count Hematocri 42.0 - % Low No Apr 26 t [Volume 52.0 informati 2017 6:03 on in AM Fraction] source of Blood data Hemoglobi 14.1 - g/dL Low No Apr 26 n 18.0 informati 2017 6:03 [Mass/vol on in AM ume] in source Blood data Lymphocyt 0.7 - 4.5 K/mm3 Normal No Apr 26 es informati 2017 6:03 [#/volume on in AM ] in source Unspecifi data ed specimen by Automated count Lymphocyt 10 - 50 % Low No Apr 26 es informati 2017 6:03 [#/volume on in AM ] in source Unspecifi data ed specimen by Automated count Erythrocy 27 - 31.2 pg Normal No Apr 26 te mean informati 2017 6:03 corpuscul on in AM ar source hemoglobi data n [Entitic mass] Erythrocy 31.8 - g/dl Normal No Apr 26 te mean 35.4 informati 2017 6:03 corpuscul on in AM ar source hemoglobi data n concentra tion [Mass/vol ume] by Automated count Erythrocy 82.2 - fl Normal No Apr 26 te mean 97.8 informati 2017 6:03 corpuscul on in AM ar volume source [Entitic data volume] by Automated count Monocytes 0.1 - 1.0 K/mm3 Normal No Apr 26 informati 2017 6:03 [#/volume on in AM ] in source Blood by data Automated count Monocytes 1.7 - 9.3 % Normal No Apr 26 /100 informati 2017 6:03 leukocyte on in AM s in source Blood by data Automated count Platelet 7.4 - fl Normal No Apr 26 mean 10.4 informati 2017 6:03 volume on in AM [Entitic source volume] data in Blood by Automated count Platelets 142 - 424 K/mm3 Normal No Apr 26 informati 2017 6:03 [#/volume on in AM ] in source Blood data Erythrocy 4.6 - 6.2 M/mm3 Low No Apr 26 lauro informati 2017 6:03 [#/volume on in AM ] in source Amniotic data fluid Erythrocy 11.5 - % Normal No Apr 26 te 17.5 informati 2017 6:03 distribut on in AM ion width source [Entitic data volume] by Automated count Leukocyte 4.8 - K/MM3 No Apr 26 s 10.8 informati informati 2017 6:03 [#/volume on in on in AM ] in source source Blood data data Glucose [Mass/volume] in Capillary blood by Glucometer Observa Value Referen Units Interpr Notes Date tion ce etation Range Glucose 70 - 110 mg/dl High No Apr 25 [Mass/vol informati 2016 7:34 ume] in on in PM Capillary source blood by data Glucomete r Glucose [Mass/volume] in Capillary blood by Glucometer Observa Value Referen Units Interpr Notes Date tion ce etation Range Glucose 70 - 110 mg/dl High No Apr 25 [Mass/vol informati 2016 4:46 ume] in on in PM Capillary source blood by data Glucomete r Glucose [Mass/volume] in Capillary blood by Glucometer Observa Value Referen Units Interpr Notes Date ti ce etation Range Glucose 70 - 110 mg/dl High No Apr 25 [Mass/vol informati 2016 ume] in on in 11:49 AM Capillary source blood by data Glucomete r Glucose [Mass/volume] in Capillary blood by Glucometer Observa Value Referen Units Interpr Notes Date ti ce etation Range Glucose 70 - 110 mg/dl High No Apr 25 [Mass/vol informati 2016 6:56 ume] in on in AM Capillary source blood by data Glucomete r CBC W Auto Differential panel in Blood Observa Value Referen Units Interpr Notes Date ti ce etation Range Basophils 0 - 0.2 K/MM3 Normal No Apr 25 informati 2016 6:11 [#/volume on in AM ] in source Blood by data Automated count Basophils 0.1 - 2.0 % Normal No Apr 25 informati 2017 6:11 leukocyte on in AM s in source Blood by data Automated count Leukocyte No K/mm3 No No Apr 25 s informati informati informati 2017 6:11 [#/volume on in on in on in AM ] source source source corrected data data data for nucleated erythrocy lauro in Blood Eosinophi 0.0 - 0.4 K/mm3 Normal No Apr 25 ls informati 2016 6:11 [#/volume on in AM ] in source Blood by data Automated count Eosinophi 0.1 - % Normal No Apr 25 ls/100 12.0 informati 2016 6:11 leukocyte on in AM s in source Blood by data Automated count Granulocy 1.3 - 8.0 K/mm3 High No Apr 25 lauro informati 2017 6:11 [#/volume on in AM ] in source Blood by data Automated count Granulocy 37.0 - % High No Apr 25 lauro/100 80.0 informati 2017 6:11 leukocyte on in AM s in source Blood by data Automated count Hematocri 42.0 - % Low No Apr 25 t [Volume 52.0 informati 2017 6:11 on in AM Fraction] source of Blood data Hemoglobi 14.1 - g/dL Low No Apr 25 n 18.0 informati 2017 6:11 [Mass/vol on in AM ume] in source Blood data Lymphocyt 0.7 - 4.5 K/mm3 Normal No Apr 25 es informati 2017 6:11 [#/volume on in AM ] in source Unspecifi data ed specimen by Automated count Lymphocyt 10 - 50 % Low No Apr 25 es informati 2016 6:11 [#/volume on in AM ] in source Unspecifi data ed specimen by Automated count Erythrocy 27 - 31.2 pg Normal No Apr 25 te mean informati 2017 6:11 corpuscul on in AM ar source hemoglobi data n [Entitic mass] Erythrocy 31.8 - g/dl Low No Apr 25 te mean 35.4 informati 2017 6:11 corpuscul on in AM ar source hemoglobi data n concentra tion [Mass/vol ume] by Automated count Erythrocy 82.2 - fl Normal No Apr 25 te mean 97.8 informati 2016 6:11 corpuscul on in AM ar volume source [Entitic data volume] by Automated count Monocytes 0.1 - 1.0 K/mm3 Normal No Apr 25 informati 2017 6:11 [#/volume on in AM ] in source Blood by data Automated count Monocytes 1.7 - 9.3 % Normal No Apr 25 / informati 2017 6:11 leukocyte on in AM s in source Blood by data Automated count Platelet 7.4 - fl Normal No Apr 25 mean 10.4 informati 2017 6:11 volume on in AM [Entitic source volume] data in Blood by Automated count Platelets 142 - 424 K/mm3 No No Apr 25 informati informati 2017 6:11 [#/volume on in on in AM ] in source source Blood data data Erythrocy 4.6 - 6.2 M/mm3 Low No Apr 25 lauro informati 2017 6:11 [#/volume on in AM ] in source Amniotic data fluid Erythrocy 11.5 - % Normal No Apr 25 te 17.5 informati 2017 6:11 distribut on in AM ion width source [Entitic data volume] by Automated count Leukocyte 4.8 - K/MM3 High No Apr 25 s 10.8 informati 2016 6:11 [#/volume on in AM ] in source Blood data Differential panel, method unspecified - Observa Value Referen Units Interpr Notes Date tion ce etation Range LYMPH 9 10 - 50 % Low No Apr 25 inform 2017 tion in 6:11 AM source data Monocytes 2 - 9 % Normal No Apr 25 /100 informati 2016 6:11 leukocyte on in AM s in source Blood by data Automated count Nucleated 0 - 1 % Normal No Apr 25 informati 2016 6:11 erythrocy on in AM lauro source [#/volume data ] in Blood Platele NORMAL No No No Apr 25 ts informa informa informa informa 2016 [Presen tion in tion in tion in tion in 6:11 AM ce] in source source source source Blood data data data data by Light microsc opy Neutrophi 42 - 76 % High No Apr 25 ls informati 2016 6:11 [#/volume on in AM ] in source Blood by data Automated count Cells No #CELLS No No Apr 25 Counted informati informati informati 2016 6:11 Total [#] on in on in on in AM in Blood source source source data data data Basic metabolic panel in Blood Observa Value Referen Units Interpr Notes Date ti ce etation Range Urea 7 - 18 mg/dL High No Apr 25 nitrogen informati 2017 6:11 [Mass/vol on in AM ume] in source Serum or data Plasma Calcium 8.5 - mg/dL Low No Apr 25 [Mass/vol 10.1 informati 2016 6:11 ume] in on in AM Serum or source Plasma data Chloride 98 - 107 mmoL/L Normal No Apr 25 [Moles/vo informati 2017 6:11 lume] in on in AM Serum or source Plasma data Carbon 21.0 - mmoL/L Normal No Apr 25 dioxide, 32.0 informati 2016 6:11 total on in AM [Moles/vo source lume] in data Serum or Plasma Creatinin 0.70 - mg/dL High No Apr 25 e 1.30 informati 2017 6:11 [Mass/vol on in AM ume] in source Serum or data Plasma Creatinin 50 - 200 ML/MIN No No Apr 25 e renal informati informati 2017 6:11 clearance on in on in AM source source predicted data data by Cockcroft -Gault formula Estimated >60 ML/MIN No REFERENCE Apr 25 informati RANGE: 2017 6:11 glomerula on in >60 AM r source ML/MIN/1. filtratio data 73 SQUARE n rate METERSIf (GF this patient is -A merican, then multiply theresult by 1.210. Glucose 74 - 106 mg/dL High No Apr 25 [Mass/vol informati 2017 6:11 ume] in on in AM Serum or source Plasma data Potassium 3.5 - 5.1 mmoL/L Normal No Apr 25 informati 2016 6:11 [Moles/vo on in AM lume] in source Serum or data Plasma Sodium 136 - 145 mmoL/L Normal No Apr 25 [Moles/vo informati 2016 6:11 lume] in on in AM Serum or source Plasma data Hepatic function 2000 panel in Serum or Plasma Observa Value Referen Units Interpr Notes Date tion ce etation Range Albumin 3.4 - 5.0 gm/dL No No Apr 25 [Mass/vol informati informati 2017 6:11 ume] in on in on in AM Serum or source source Plasma data data Alkaline 46 - 116 U/L Normal No Apr 25 phosphata informati 2017 6:11 se on in AM [Enzymati source c data activity/ volume] in Serum or Plasma Bilirubin 0.0 - 0.2 mg/dL Normal No Apr 25 .direct informati 2017 6:11 [Mass/vol on in AM ume] in source Serum or data Plasma Bilirubin 0 - 0.9 mg/dL Normal No Apr 25 .indirect informati 2017 6:11 on in AM [Mass/vol source ume] in data Serum or Plasma Bilirubin 0.2 - 1.0 mg/dL Normal No Apr 25 .total informati 2017 6:11 [Mass/vol on in AM ume] in source Serum or data Plasma Aspartate 15 - 37 U/L High No Apr 25 informati 2017 6:11 aminotran on in AM sferase source [Enzymati data c activity/ volume] in Serum or Plasma Alanine 12 - 78 U/L High No Apr 25 aminotran informati 2017 6:11 sferase on in AM [Enzymati source c data activity/ volume] in Serum or Plasma Protein 6.4 - 8.2 gm/dL Normal No Apr 25 [Mass/vol informati 2016 6:11 ume] in on in AM Serum or source Plasma data Glucose [Mass/volume] in Capillary blood by Glucometer Observa Value Referen Units Interpr Notes Date tion ce etation Range Glucose 70 - 110 mg/dl High No Apr 24 [Mass/vol informati 2016 9:20 ume] in on in PM Capillary source blood by data Glucomete r Glucose [Mass/volume] in Capillary blood by Glucometer Observa Value Referen Units Interpr Notes Date tion ce etation Range Glucose 70 - 110 mg/dl High No Apr 24 [Mass/vol informati 2016 4:58 ume] in on in PM Capillary source blood by data Glucomete r Glucose [Mass/volume] in Capillary blood by Glucometer Observa Value Referen Units Interpr Notes Date tion ce etation Range Glucose 70 - 110 mg/dl High No Apr 24 [Mass/vol informati 2016 ume] in on in 12:02 PM Capillary source blood by data Glucomete r Basic metabolic panel in Blood Observa Value Referen Units Interpr Notes Date tion ce etation Range Urea 7 - 18 mg/dL High No Apr 24 nitrogen informati 2016 6:30 [Mass/vol on in AM ume] in source Serum or data Plasma Calcium 8.5 - mg/dL Low No Apr 24 [Mass/vol 10.1 informati 2017 6:30 ume] in on in AM Serum or source Plasma data Chloride 98 - 107 mmoL/L Normal No Apr 24 [Moles/vo informati 2017 6:30 lume] in on in AM Serum or source Plasma data Carbon 21.0 - mmoL/L Normal No Apr 24 dioxide, 32.0 informati 2017 6:30 total on in AM [Moles/vo source lume] in data Serum or Plasma Creatinin 0.70 - mg/dL High No Apr 24 e 1.30 informati 2017 6:30 [Mass/vol on in AM ume] in source Serum or data Plasma Creatinin 50 - 200 ML/MIN Normal No Apr 24 e renal informati 2017 6:30 clearance on in AM source predicted data by Cockcroft -Gault formula Estimated >60 ML/MIN No REFERENCE Apr 24 informati RANGE: 2017 6:30 glomerula on in >60 AM r source ML/MIN/1. filtratio data 73 SQUARE n rate METERSIf (GF this patient is -A merican, then multiply theresult by 1.210. Glucose 74 - 106 mg/dL High No Apr 24 [Mass/vol informati 2016 6:30 ume] in on in AM Serum or source Plasma data Potassium 3.5 - 5.1 mmoL/L Normal No Apr 24 informati 2017 6:30 [Moles/vo on in AM lume] in source Serum or data Plasma Sodium 136 - 145 mmoL/L Normal No Apr 24 [Moles/vo informati 2016 6:30 lume] in on in AM Serum or source Plasma data Glucose [Mass/volume] in Capillary blood by Glucometer Observa Value Referen Units Interpr Notes Date tion ce etation Range Glucose 70 - 110 mg/dl High No Apr 24 [Mass/vol informati 2016 6:07 ume] in on in AM Capillary source blood by data Glucomete r Glucose [Mass/volume] in Capillary blood by Glucometer Observa Value Referen Units Interpr Notes Date tion ce etation Range Glucose 70 - 110 mg/dl High No Apr 23 [Mass/vol informati 2016 8:03 ume] in on in PM Capillary source blood by data Glucomete r Glucose [Mass/volume] in Capillary blood by Glucometer Observa Value Referen Units Interpr Notes Date tion ce etation Range Glucose 70 - 110 mg/dl High No Apr 23 [Mass/vol informati 2017 4:34 ume] in on in PM Capillary source blood by data Glucomete r Glucose [Mass/volume] in Capillary blood by Glucometer Observa Value Referen Units Interpr Notes Date tion ce etation Range Glucose 70 - 110 mg/dl High No Apr 23 [Mass/vol informati 2016 ume] in on in 11:18 AM Capillary source blood by data Glucomete r Hepatic function 2000 panel in Serum or Plasma Observa Value Referen Units Interpr Notes Date tion ce etation Range 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 Albumin 3.4 - 5.0 gm/dL Low No Apr 23 [Mass/vol informati 2017 6:17 ume] in on in AM Serum or source Plasma data Alkaline 46 - 116 U/L Normal No Apr 23 phosphata informati 2017 6:17 se on in AM [Enzymati source c data activity/ volume] in Serum or Plasma Bilirubin 0.0 - 0.2 mg/dL Normal No Apr 23 .direct informati 2017 6:17 [Mass/vol on in AM ume] in source Serum or data Plasma Bilirubin 0 - 0.9 mg/dL Normal No Apr 23 .indirect informati 2017 6:17 on in AM [Mass/vol source ume] in data Serum or Plasma Bilirubin 0.2 - 1.0 mg/dL Normal No Apr 23 .total informati 2017 6:17 [Mass/vol on in AM ume] in source Serum or data Plasma Aspartate 15 - 37 U/L High No Apr 23 informati 2016 6:17 aminotran on in AM sferase source [Enzymati data c activity/ volume] in Serum or Plasma Alanine 12 - 78 U/L High No Apr 23 aminotran informati 2016 6:17 sferase on in AM [Enzymati source c data activity/ volume] in Serum or Plasma Protein 6.4 - 8.2 gm/dL Normal No Apr 23 [Mass/vol informati 2017 6:17 ume] in on in AM Serum or source Plasma data CBC W Auto Differential panel in Blood Observa Value Referen Units Interpr Notes Date tion ce etation Range Basophils 0 - 0.2 K/MM3 Normal No Apr 23 informati 2016 6:17 [#/volume on in AM ] in source Blood by data Automated count Basophils 0.1 - 2.0 % Normal No Apr 23 /100 informati 2016 6:17 leukocyte on in AM s in source Blood by data Automated count Eosinophi 0.0 - 0.4 K/mm3 Normal No Apr 23 ls informati 2016 6:17 [#/volume on in AM ] in source Blood by data Automated count Eosinophi 0.1 - % Normal No Apr 23 ls/100 12.0 informati 2016 6:17 leukocyte on in AM s in source Blood by data Automated count Granulocy 1.3 - 8.0 K/mm3 Normal No Apr 23 lauro informati 2016 6:17 [#/volume on in AM ] in source Blood by data Automated count Granulocy 37.0 - % Normal No Apr 23 lauro/100 80.0 informati 2017 6:17 leukocyte on in AM s in source Blood by data Automated count Hematocri 42.0 - % Low No Apr 23 t [Volume 52.0 informati 2017 6:17 on in AM Fraction] source of Blood data Hemoglobi 14.1 - g/dL Low No Apr 23 n 18.0 informati 2017 6:17 [Mass/vol on in AM ume] in source Blood data Lymphocyt 0.7 - 4.5 K/mm3 Normal No Apr 23 es informati 2017 6:17 [#/volume on in AM ] in source Unspecifi data ed specimen by Automated count Lymphocyt 10 - 50 % Normal No Apr 23 es informati 2017 6:17 [#/volume on in AM ] in source Unspecifi data ed specimen by Automated count Erythrocy 27 - 31.2 pg Normal No Apr 23 te mean informati 2016 6:17 corpuscul on in AM ar source hemoglobi data n [Entitic mass] Erythrocy 31.8 - g/dl Normal No Apr 23 te mean 35.4 informati 2017 6:17 corpuscul on in AM ar source hemoglobi data n concentra tion [Mass/vol ume] by Automated count Erythrocy 82.2 - fl Normal No Apr 23 te mean 97.8 informati 2017 6:17 corpuscul on in AM ar volume source [Entitic data volume] by Automated count Monocytes 0.1 - 1.0 K/mm3 Normal No Apr 23 informati 2017 6:17 [#/volume on in AM ] in source Blood by data Automated count Monocytes 1.7 - 9.3 % Normal No Apr 23 /100 informati 2017 6:17 leukocyte on in AM s in source Blood by data Automated count Platelet 7.4 - fl Normal No Apr 23 mean 10.4 informati 2017 6:17 volume on in AM [Entitic source volume] data in Blood by Automated count Platelets 142 - 424 K/mm3 Normal No Apr 23 informati 2017 6:17 [#/volume on in AM ] in source Blood data Erythrocy 4.6 - 6.2 M/mm3 Low No Apr 23 lauro informati 2017 6:17 [#/volume on in AM ] in source Amniotic data fluid Erythrocy 11.5 - % Normal No Apr 23 te 17.5 informati 2017 6:17 distribut on in AM ion width source [Entitic data volume] by Automated count Leukocyte 4.8 - K/MM3 No No Apr 23 s 10.8 informati informati 2017 6:17 [#/volume on in on in AM ] in source source Blood data data Basic metabolic panel in Blood Observa Value Referen Units Interpr Notes Date ti ce etation Range Urea 7 - 18 mg/dL High No Apr 23 nitrogen informati 2016 6:17 [Mass/vol on in AM ume] in source Serum or data Plasma Calcium 8.5 - mg/dL Low No Apr 23 [Mass/vol 10.1 informati 2017 6:17 ume] in on in AM Serum or source Plasma data Chloride 98 - 107 mmoL/L High No Apr 23 [Moles/vo informati 2016 6:17 lume] in on in AM Serum or source Plasma data Carbon 21.0 - mmoL/L Normal No Apr 23 dioxide, 32.0 informati 2016 6:17 total on in AM [Moles/vo source lume] in data Serum or Plasma Creatinin 0.70 - mg/dL Normal No Apr 23 e 1.30 informati 2016 6:17 [Mass/vol on in AM ume] in source Serum or data Plasma Creatinin 50 - 200 ML/MIN Normal No Apr 23 e renal informati 2017 6:17 clearance on in AM source predicted data by Cockcroft -Gault formula Estimated >60 ML/MIN No REFERENCE Apr 23 informati RANGE: 2017 6:17 glomerula on in >60 AM r source ML/MIN/1. filtratio data 73 SQUARE n rate METERSIf (GF this patient is -A merican, then multiply theresult by 1.210. Glucose 74 - 106 mg/dL High No Apr 23 [Mass/vol informati 2016 6:17 ume] in on in AM Serum or source Plasma data Potassium 3.5 - 5.1 mmoL/L Normal No Apr 23 informati 2016 6:17 [Moles/vo on in AM lume] in source Serum or data Plasma Sodium 136 - 145 mmoL/L Normal No Apr 23 [Moles/vo informati 2016 6:17 lume] in on in AM Serum or source Plasma data Glucose [Mass/volume] in Capillary blood by Glucometer Observa Value Referen Units Interpr Notes Date ti ce etation Range Glucose 70 - 110 mg/dl High No Apr 23 [Mass/vol informati 2017 5:33 ume] in on in AM Capillary source blood by data Glucomete r Glucose [Mass/volume] in Capillary blood by Glucometer Observa Value Referen Units Interpr Notes Date ti ce etation Range Glucose 70 - 110 mg/dl High No Apr 23 [Mass/vol informati 2017 ume] in on in 12:05 AM Capillary source blood by data Glucomete r Glucose [Mass/volume] in Capillary blood by Glucometer Observa Value Referen Units Interpr Notes Date ti ce etation Range Glucose 70 - 110 mg/dl High No Apr 22 [Mass/vol alert informati 2017 7:45 ume] in on in PM Capillary source blood by data Glucomete r Glucose [Mass/volume] in Capillary blood by Glucometer Observa Value Referen Units Interpr Notes Date ti ce etation Range Glucose 70 - 110 mg/dl High No Apr 22 [Mass/vol alert informati 2016 4:55 ume] in on in PM Capillary source blood by data Glucomete r Urinalysis dipstick W Reflex Microscopic panel in Urine Observa Value Referen Units Interpr Notes Date ce etation Range Appeara CLEAR CLEAR No No No Apr 22 nce of informa informa informa 2016 Urine tion in tion in tion in 2:16 PM source source source data data data Bacteri TRACE O No No No Apr 22 a informa informa informa 2016 [Presen tion in tion in tion in 2:16 PM ce] in source source source Urine data data data sedimen t by Light microsc opy Bilirub NEGATIV NEG No No No Apr 22 in E informa informa informa 2016 [Presen tion in tion in tion in 2:16 PM ce] in source source source Urine data data data by Test strip Erythro TRACE-L NEG No No No Apr 22 cytes YSED informa informa informa 2016 [Presen tion in tion in tion in 2:16 PM ce] in source source source Urine data data data Color YELLOW YELLOW No No No Apr 22 of informa informa informa 2017 Urine tion in tion in tion in 2:16 PM source source source data data data Glucose NEG No High No Apr 22 [Mass/vol informati informati 2017 2:16 ume] in on in on in PM Urine by source source Test data data strip Ketones NEGATIV NEG mg/dL No No Apr 22 E informa informa 2016 [Presen tion in tion in 2:16 PM ce] in source source Urine data data by Automat ed test strip Mucus NEGATIV NEG No No No Mar 24 [Presen E informa informa informa 2016 ce] in tion in tion in tion in 2:16 PM Urine source source source sedimen data data data t by Light microsc opy Nitrite NEGATIV NEG No No No Apr 22 E informa informa informa 2016 [Presen tion in tion in tion in 2:16 PM ce] in source source source Urine data data data by Test strip pH of 5.0 - 8.5 No Normal No Mar 24 Urine informati informati 2017 2:16 on in on in PM source source data data Protein NEG mg/dL No No Apr 22 [Mass/vol informati informati 2017 2:16 ume] in on in on in PM Urine by source source Automated data data test strip Specific 1.005 - No Normal No Apr 22 gravity 1.030 informati informati 2017 2:16 of Urine on in on in PM source source data data Urobili 0.2 NEG E.U./dL No No Apr 22 nogen informa informa 2016 [Presen tion in tion in 2:16 PM ce] in source source Urine data data by Test strip Leukocyte O wbc/hpf No No Mar 24 s informati informati 2017 2:16 [#/volume on in on in PM ] in source source Urine data data Urinalysis dipstick W Reflex Microscopic panel in Urine Observa Value Referen Units Interpr Notes Date tion ce etation Range Appeara CLEAR CLEAR No No No Apr 22 nce of informa informa informa 2017 Urine tion in tion in tion in 2:16 PM source source source data data data Bilirub NEGATIV NEG No No No Apr 22 in E informa informa informa 2016 [Presen tion in tion in tion in 2:16 PM ce] in source source source Urine data data data by Test strip Erythro TRACE-L NEG No No No Apr 22 cytes YSED informa informa informa 2017 [Presen tion in tion in tion in 2:16 PM ce] in source source source Urine data data data Color YELLOW YELLOW No No No Mar 24 of informa informa informa 2017 Urine tion in tion in tion in 2:16 PM source source source data data data Glucose NEG No High No Mar 24 [Mass/vol informati informati 2017 2:16 ume] in on in on in PM Urine by source source Test data data strip Ketones NEGATIV NEG mg/dL No No Mar 24 E informa informa 2016 [Presen tion in tion in 2:16 PM ce] in source source Urine data data by Automat ed test strip Mucus NEGATIV NEG No No No Mar 24 [Presen E informa informa informa 2016 ce] in tion in tion in tion in 2:16 PM Urine source source source sedimen data data data t by Light microsc opy Nitrite NEGATIV NEG No No No Mar 24 E informa informa informa 2016 [Presen tion in tion in tion in 2:16 PM ce] in source source source Urine data data data by Test strip pH of 5.0 - 8.5 No Normal No Mar 24 Urine informati informati 2017 2:16 on in on in PM source source data data Protein NEG mg/dL No No Mar 24 [Mass/vol informati informati 2016 2:16 ume] in on in on in PM Urine by source source Automated data data test strip Specific 1.005 - No Normal No Apr 22 gravity 1.030 informati informati 2017 2:16 of Urine on in on in PM source source data data Urobili 0.2 NEG E.U./dL No No Mar 24 nogen informa informa 2016 [Presen tion in tion in 2:16 PM ce] in source source Urine data data by Test strip Basic metabolic panel in Blood Observa Value Referen Units Interpr Notes Date tion ce etation Range Urea 7 - 18 mg/dL High No Mar 24 nitrogen informati 2017 1:05 [Mass/vol on in PM ume] in source Serum or data Plasma Calcium 8.5 - mg/dL Low No Mar 24 [Mass/vol 10.1 informati 2017 1:05 ume] in on in PM Serum or source Plasma data Chloride 98 - 107 mmoL/L Normal No Mar 24 [Moles/vo informati 2017 1:05 lume] in on in PM Serum or source Plasma data Carbon 21.0 - mmoL/L Normal No Apr 22 dioxide, 32.0 informati 2017 1:05 total on in PM [Moles/vo source lume] in data Serum or Plasma Creatinin 0.70 - mg/dL High No Apr 22 e 1.30 informati 2016 1:05 [Mass/vol on in PM ume] in source Serum or data Plasma Creatinin 50 - 200 ML/MIN Normal No Apr 22 e renal informati 2017 1:05 clearance on in PM source predicted data by Cockcroft -Gault formula Estimated >60 ML/MIN No REFERENCE Apr 22 informati RANGE: 2017 1:05 glomerula on in >60 PM r source ML/MIN/1. filtratio data 73 SQUARE n rate METERSIf (GF this patient is -A merican, then multiply theresult by 1.210. Glucose 74 - 106 mg/dL High Apr 22 [Mass/vol 2017 1:05 ume] in CRITICAL PM Serum or RESULTS Plasma RESU LTS CALLED TO: NEIL Clayton 04/22/17 1327 [facility] Potassium 3.5 - 5.1 mmoL/L High No Apr 22 informati 2016 1:05 [Moles/vo on in PM lume] in source Serum or data Plasma Sodium 136 - 145 mmoL/L Normal No Apr 22 [Moles/vo informati 2016 1:05 lume] in on in PM Serum or source Plasma data Magnesium [Moles/volume] in Unspecified specimen Observa Value Referen Units Interpr Notes Date tion ce etation Range Magnesium 1.4 - 2.2 mg/dL High No Apr 22 informati 2016 1:05 [Moles/vo on in PM lume] in source Unspecifi data ed specimen Natriutietic peptide B [Mass/volume] in Serum or Plasma Observa Value Referen Units Interpr Notes Date tion ce etation Range Natriutie 0 - 100 pg/mL High No Apr 22 tic informati 2016 peptide B on in 11:30 AM source [Mass/vol data ume] in Serum or Plasma Amylase [Enzymatic activity/volume] in Serum or Plasma Observa Value Referen Units Interpr Notes Date tion ce etation Range Amylase 25 - 115 U/L Normal No Apr 22 [Enzymati 2016 c on in 11:30 AM activity/ source volume] data in Serum or Plasma CBC W Auto Differential panel in Blood Observa Value Referen Units Interpr Notes Date tion ce etation Range Basophils 0 - 0.2 K/MM3 Normal No Apr 222016 [#/volume on in 11:30 AM ] in source Blood by data Automated count Basophils 0.1 - 2.0 % Normal No Apr 22 /100 [email or web address] leukocyte on in 11:30 AM s in source Blood by data Automated count Eosinophi 0.0 - 0.4 K/mm3 Normal No Apr 22 ls inform2016 [#/volume on in 11:30 AM ] in source Blood by data Automated count Eosinophi 0.1 - % Normal No Apr 22 ls/100 12.0 inform2016 leukocyte on in 11:30 AM s in source Blood by data Automated count Granulocy 1.3 - 8.0 K/mm3 High No Apr 22 lauro 2016 [#/volume on in 11:30 AM ] in source Blood by data Automated count Granulocy 37.0 - % High No Apr 22 lauro/100 80.0 inform2016 leukocyte on in 11:30 AM s in source Blood by data Automated count Hematocri 42.0 - % Low No Apr 22 t [Volume 52.0 2016 on in 11:30 AM Fraction] source of Blood data Hemoglobi 14.1 - g/dL Low No Apr 22 n 18.0 2016 [Mass/vol on in 11:30 AM ume] in source Blood data Lymphocyt 0.7 - 4.5 K/mm3 Low No Apr 22 es 2016 [#/volume on in 11:30 AM ] in source Unspecifi data ed specimen by Automated count Lymphocyt 10 - 50 % Low No Apr 22 es 2016 [#/volume on in 11:30 AM ] in source Unspecifi data ed specimen by Automated count Erythrocy 27 - 31.2 pg Normal No Apr 22 te mean 2016 corpuscul on in 11:30 AM ar source hemoglobi data n [Entitic mass] Erythrocy 31.8 - g/dl Normal Apr 22 te mean 35.4 2016 corpuscul on in 11:30 AM ar source hemoglobi data n concentra tion [Mass/vol ume] by Automated count Erythrocy 82.2 - fl Normal No Apr 22 te mean 97.8 2016 corpuscul on in 11:30 AM ar volume source [Entitic data volume] by Automated count Monocytes 0.1 - 1.0 K/mm3 Normal No Apr 222016 [#/volume on in 11:30 AM ] in source Blood by data Automated count Monocytes 1.7 - 9.3 % Normal No Apr 22 /100 inform2016 leukocyte on in 11:30 AM s in source Blood by data Automated count Platelet 7.4 - fl Normal No Apr 22 mean 10.4 2016 volume on in 11:30 AM [Entitic source volume] data in Blood by Automated count Platelets 142 - 424 K/mm3 No No Apr 22 inform2016 [#/volume on in on in 11:30 AM ] in source source Blood data data Erythrocy 4.6 - 6.2 M/mm3 Low No Apr 22 lauro 2016 [#/volume on in 11:30 AM ] in source Amniotic data fluid Erythrocy 11.5 - % Normal Apr 22 te 17.5 2016 distribut on in 11:30 AM ion width source [Entitic data volume] by Automated count Leukocyte 4.8 - K/MM3 High No Apr 22 s 10.8 2016 [#/volume on in 11:30 AM ] in source Blood data Differential panel, method unspecified - Observa Value Referen Units Interpr Notes Date tion ce etation Range LYMPH 7 10 - 50 % Low No Apr 222016 tion in 11:30 source AM data Monocytes 2 - 9 % Normal No Apr 22 /2016 leukocyte on in 11:30 AM s in source Blood by data Automated count Platele NORMAL No No No No Apr 22 ts informa informa informa informa 2016 [Presen tion in tion in tion in tion in 11:30 ce] in source source source source AM Blood data data data data by Light microsc opy Neutrophi 42 - 76 % High No Apr 22 ls 2016 [#/volume on in 11:30 AM ] in source Blood by data Automated count Cells No #CELLS No No Apr 22 Counted informati 2016 Total [#] on in on in on in 11:30 AM in Blood source source source data data data Acetone [Mass/volume] in Serum or Plasma Observa Value Referen Units Interpr Notes Date tion ce etation Range Acetone NOT No No No Apr 22 [Mass/vol DETECTD informati informati informati 2016 ume] in on in on in on in 11:30 AM Serum or source source source Plasma data data data Comprehensive metabolic 2000 panel in Serum or Plasma Observa Value Referen Units Interpr Notes Date tion ce etation Range Albumin/G 1.1 - 1.8 No Low No Apr 22 lobulin informati informati 2016 [Mass on in on in 11:30 AM ratio] in source source Serum or data data Plasma Albumin 3.4 - 5.0 gm/dL No No Apr 22 [Mass/vol informati informati 2016 ume] in on in on in 11:30 AM Serum or source source Plasma data data Alkaline 46 - 116 U/L Normal No Apr 22 phosphata informati 2016 se on in 11:30 AM [Enzymati source c data activity/ volume] in Serum or Plasma Bilirubin 0.2 - 1.0 mg/dL Normal No Apr 22 .total informati 2016 [Mass/vol on in 11:30 AM ume] in source Serum or data Plasma Urea 7 - 18 mg/dL High No Apr 22 nitrogen informati 2016 [Mass/vol on in 11:30 AM ume] in source Serum or data Plasma Calcium 8.5 - mg/dL Low No Apr 22 [Mass/vol 10.1 informati 2016 ume] in on in 11:30 AM Serum or source Plasma data Chloride 98 - 107 mmoL/L Normal No Apr 22 [Moles/vo informati 2016 lume] in on in 11:30 AM Serum or source Plasma data Carbon 21.0 - mmoL/L Normal No Apr 22 dioxide, 32.0 informati 2016 total on in 11:30 AM [Moles/vo source lume] in data Serum or Plasma Creatinin 0.70 - mg/dL High No Apr 22 e 1.30 informati 2017 [Mass/vol on in 11:30 AM ume] in source Serum or data Plasma Creatinin 50 - 200 ML/MIN Normal No Apr 22 e renal informati 2017 clearance on in 11:30 AM source predicted data by Cockcroft -Gault formula Estimated >60 ML/MIN No REFERENCE Apr 22 informati RANGE: 2017 glomerula on in >60 11:30 AM r source ML/MIN/1. filtratio data 73 SQUARE n rate METERSIf (GF this patient is -A merican, then multiply theresult by 1.210. Globulin 1.3 - 3.2 gm/dL High No Apr 22 [Mass/vol informati 2017 ume] in on in 11:30 AM Serum source data Glucose 74 - 106 mg/dL High Apr 22 [Mass/vol 2016 ume] in CRITICAL 11:30 AM Serum or RESULTS Plasma RESU LTS CALLED TO: MOAN.CLA 04/22/17 1145 Sundar,Rich priscilla Potassium 3.5 - 5.1 mmoL/L High Apr 22 alert 2016 [Moles/vo CRITICAL 11:30 AM lume] in RESULTS Serum or Plasma RESU LTS CALLED TO: MONA.CLA 04/22/17 1145 Sundar,Rich priscilla Sodium 136 - 145 mmoL/L Normal No Apr 22 [Moles/vo informati 2016 lume] in on in 11:30 AM Serum or source Plasma data Aspartate 15 - 37 U/L High No Apr 22 informati 2016 aminotran on in 11:30 AM sferase source [Enzymati data c activity/ volume] in Serum or Plasma Alanine 12 - 78 U/L High No Apr 22 aminotran informati 2017 sferase on in 11:30 AM [Enzymati source c data activity/ volume] in Serum or Plasma Protein 6.4 - 8.2 gm/dL No No Apr 22 [Mass/vol informati informati 2016 ume] in on in on in 11:30 AM Serum or source source Plasma data data Lipase [Enzymatic activity/volume] in Serum or Plasma Observa Value Referen Units Interpr Notes Date tion ce etation Range Lipase 73 - 393 U/L Normal No Apr 22 [Enzymati informati 2017 c on in 11:30 AM activity/ source volume] data in Serum or Plasma Glucose [Mass/volume] in Capillary blood by Glucometer Observa Value Referen Units Interpr Notes Date tion ce etation Range Glucose 70 - 110 mg/dl High No Apr 22 [Mass/vol alert informati 2017 ume] in on in 11:13 AM Capillary source blood by data Gluctor r
--- OUTSIDE RECORDS SUMMARY | 2017-06-05 02:57 | External Medical Summary Rpt ---
Author Author SELVINANNETTE Osman, [facility] [email or web address] Address Unknown Phone Unavailable Results Vancomycin [Mass/volume] in Serum or Plasma --trough Observa Value Referen Units Interpr Notes Date tion ce etation Range Vancomyci 5.0 - mcg/mL High RESULTS Sep 5 n 10.0 CALLED TO 2017 2:25 [Mass/vol PM ume] in PHARMACIS Serum or T: SHADIA Plasma E. --trough 7 1517 Ananth,[place] Glucose [Mass/volume] in Capillary blood by [...] Date tion ce etation Range COMMENTS TO [employer]OCIATE: may use blood from this a.m. Albumin [...] or RESULTS Plasma RESU LTS CALLED TO: MONA.CLA 04/22/17 1145 Sundar,Rich priscilla Potassium 3.5 - [...]
--- OUTSIDE RECORDS SUMMARY | 2017-06-05 04:52 | External Medical Summary Rpt ---
Demographics Preferred Language Hungarian Marital Status Unknown Hoahaoism Affiliation Unknown Race Unknown Ethnic Group Unknown Author Author VILLA Address Unknown Phone Immunization Unable to retrieve immunization data due to connection failure with Immunization Registry. Please try again later.
--- OUTSIDE RECORDS SUMMARY | 2017-06-05 04:52 | External Medical Summary Rpt ---
Author Author , VILLA MONTALVOANNETTE Address Unknown Phone [email or web address] Purpose Continuity of Care Document - 07-14-2016 [...] Order Detail nces retati t Range on UA Dipstick Pnl Ur (07-14-2016 09:55) Comment: Urine microscopic not indicated. Color [id number] Yellow, complet Ur 016 09 Straw ed 09:55 Yellow color SCT Clarity [id number] Clear complet Ur 016 01 ed 09:55 Clear SCT pH Ur 5.5 5.0-8.0 complet Strip.a 016 ed uto 09:55 Sp Gr 1.024 1.001-1 complet Ur 016 .030 ed Strip 09:55 Glucose >=1000 Negativ complet Ur 016 mg/dL e ed Strip-m 09:55 (3+) Cnc Ketones [id number] Negativ complet Ur Ql 016 09 e ed Strip 09:55 Negativ e SCT Bilirub [id number] Negativ complet Ur Ql 016 09 e ed Strip 09:55 Negativ e SCT Hgb Ur [id number] Negativ complet Ql 016 09 e ed Strip.a 09:55 Negativ uto e SCT Prot Ur [id number] Negativ complet Ql 016 09 e ed Strip 09:55 Negativ e SCT Leukocy [id number] Negativ complet te 016 e ed esteras 09:55 Negativ e Ur Ql e SCT Strip.a uto Nitrite [id number] Negativ complet Ur Ql 016 09 e ed Strip 09:55 Negativ e SCT Urobili 1.0 0.2 complet nogen 016 E.U./dL E.U./dL ed Ur Ql 09:55 , 1.0 Strip E.U./dL
--- OUTSIDE RECORDS SUMMARY | 2017-06-05 04:52 | External Medical Summary Rpt ---
Author Author , VILLA MONTALVOANNETTE Address Unknown Phone [email or web address] Purpose Continuity of Care Document - 07-14-2016 [...] 09:55) Comment: Urine microscopic not indicated. Color [id number] Yellow, complet Ur 016 09 Straw ed 09:55 Yellow color SCT Clarity [id number] Clear complet Ur 016 01 ed 09:55 Clear SCT pH Ur 5.5 5.0-8.0 complet Strip.a 016 ed uto 09:55 Sp Gr 1.024 1.001-1 complet Ur 016 .030 ed Strip 09:55 Glucose >=1000 Negativ complet Ur 016 mg/dL e ed Strip-m 09:55 (3+) Cnc Ketones [id number] Negativ complet Ur Ql 016 09 e ed Strip 09:55 Negativ e SCT Bilirub [id number] Negativ complet Ur Ql 016 09 e ed Strip 09:55 Negativ e SCT Hgb Ur [id number] Negativ complet Ql 016 09 e ed Strip.a 09:55 Negativ uto e SCT Prot Ur [id number] Negativ complet Ql 016 09 e ed Strip 09:55 Negativ e SCT Leukocy [id number] Negativ complet te 016 e ed esteras 09:55 Negativ e Ur Ql e SCT Strip.a uto Nitrite [id number] Negativ complet Ur Ql 016 09 e ed Strip 09:55 Negativ e SCT Urobili 1.0 0.2 complet nogen 016 E.U./dL E.U./dL ed Ur Ql 09:55 , 1.0 Strip E.U./dL
--- OUTSIDE RECORDS SUMMARY | 2017-06-05 04:52 | External Medical Summary Rpt ---
Demographics Preferred Language Divehi Marital Status Unknown Catholic Affiliation Unknown Race Unknown Ethnic Group Unknown Author Author VILLA Address Unknown Phone Immunization Unable to retrieve immunization data due to connection failure with Immunization Registry. Please try again later.
== END 2017-05-04 17:00 | disposition home or self-care (01) | DRG 293 ==
LOC: UTC 09:33 → ER 09:35 → 2ND 14:00 → ER 14:00 → 2ND 14:08
PROVIDERS: Family Medicine; General Practice; Nurse Practitioner Family
DX: I50.9 Heart failure, unspecified (principal); E11.40 Type 2 diabetes mellitus with diabetic neuropathy, unspecified; E11.39 Type 2 diabetes mellitus with other diabetic ophthalmic complication; I10 Essential (primary) hypertension; Z79.4 Long term (current) use of insulin; E11.65 Type 2 diabetes mellitus with hyperglycemia
CPT/HCPCS: A9502; J2785; J3370

== ENCOUNTER → 2017-06-02 | Outpatient (CLI) | payer MEDICAID ==
[~2017-06-02] MED LIST changes: +LASIX20 MG PO
== END ==
LOC: RT 12:39
DX: G47.30 Sleep apnea, unspecified (principal); I10 Essential (primary) hypertension; R06.83 Snoring

== ENCOUNTER → 2017-07-15 | Outpatient (CLI) | payer MEDICAID ==
[2017-07-15 18:46] LABS: BUN 43 mg/dL (7-18)
[2017-07-15 18:50] LABS: GFR (ESTIMATED) 56 ML/MIN (>60)
== END ==
LOC: LAB 17:05
PROVIDERS: Family Medicine
DX: I51.9 Heart disease, unspecified (principal); I50.30 Unspecified diastolic (congestive) heart failure